=== PATIENT | female | born 1960 | race Caucasian/White ===

== ENCOUNTER 2017-06-28 10:12 | Emergency (ER) | payer BC, SELFPAY ==
[2017-06-28 11:29] VITALS: BP 138/84; PULSE 72; RESP 16; TEMP 36.6; O2SAT 98; BMI 26.6
--- NOTE | 2017-06-28 12:39 | XR_ITS ---
XR knee RT 4V Comparison: None available History: Knee pain follow-up with Dr. Woodruff Technique: Weightbearing AP, lateral and Donald views were performed as well as oblique. Findings: No significant joint effusion. No fracture. No acute findings. Only Slight sharpening at Joint margins , which may reflect early degenerative changes. However the medial and lateral compartment are fairly well maintained with only borderline narrowing on these weightbearing views Patellofemoral relationships appear satisfactory on the sunrise view with with perhaps only very slight slight lateral shift of patella. Impression: No prominent findings. No significant joint effusion. Osseous structures intact. Borderline joint space narrowing with Only mild sharpening joint margins which are suggestive minor early degenerative changes.
--- NOTE | 2017-06-28 12:39 | NVE_ITS ---
Venous Exam Indications: 729.5 Pain in limb. IMPRESSIONS 1. There is no evidence of significant Reflux. 2. No evidence of deep or superficial vein thrombosis involving the right lower extremity.. Right lower extremity venous duplex evaluation. Doppler flow study including spectral analysis, color and solis scale imaging. Location: Vascular laboratory. Patient status: Outpatient. Tables: Venous flow and imaging: + +-------+ + Location Overall Flow properties + +-------+ + Right common femoral Patent Normal phasicity; spontaneous; normal augmentation; compressible + +-------+ + Right saphenofemoral junction Patent Compressible + +-------+ + Right profunda femoral Patent Compressible + +-------+ + Right femoral Patent Normal phasicity; spontaneous; normal augmentation; compressible + +-------+ + Right greater saphenous Patent Normal phasicity; spontaneous; normal augmentation; compressible + +-------+ + Right popliteal Patent Normal phasicity; spontaneous; normal augmentation; compressible + +-------+ + Right posterior tibial Patent Compressible + +-------+ + Right peroneal Patent Compressible + +-------+ + Right gastrocnemius Patent Compressible + +-------+ + Right soleal Patent Compressible + +-------+ + (Report amended ) Electronically signed by: Nba Hernandez [id number]
--- NOTE | 2017-06-28 12:39 | HMH.EDUTC ---
[facility] – [place] Disposition Clinical Impression: Right anterior knee pain, Pain of right calf Disposition: Home, Self-Care Condition on Discharge: Good Instructions: DI for Knee Pain Additional Instructions: No fracture, dislocation or blood clot Rest Ice 15-20 minutes 3-4 times a day Fran wrap as needed Keep follow up for Wednesday Referrals: Edwin Woodruff MD [Staff Physician] - (Keep already schedule appointment for Wednesday. be sure to let him know you were here so he can look at the final results of the doppler study and xrays. Follow up immediately for new or worsening symptoms.) Time of Disposition: 14:03 Medical Decision Making Vital Signs: 06/28/17 11:29 Temperature 97.9 F Temperature Source Temporal Artery Scan Pulse Rate [Brachial] 72 Respiratory Rate 16 Blood Pressure [Right Arm] 138/84 Blood Pressure Mean [Right Arm] 102 Blood Pressure Source [Right Arm] Automatic Cuff Blood Pressure Position [Right Arm] Sitting 02 Sat by Pulse Oximetry 98 Oxygen Delivery Method Room Air - Radiology Data #1 Image(s): Knee Image Reviewed: Yes I reviewed the patient's radiology image w/the ED provider louis w/ Dr. Sams. No fracture or dislocation. Keep FU with Dr. Tellez - US Data US Images: Lower Extremity Findings Narrative: Rvwd findings with instrument and control technician who reports no findings. - Physician Consults Physician Consulted: Dr. Tellez's office, did not speak to MD Time: 12:35 Reason -: Pt condition Comment/Response: Called to discuss symptoms. Can't fit in patient today. Reports he would typically order 4 view knee weight bearing. - Himanshu Inquiry Pt receiving controlled substance: No - Reevaluation(s) Time: 13:40 Reevaluation #1: Returned from doppler. Verbal from tech was negative result. Waiting for radiologist to read xrays [facility] [place] HPI - General Stated complaint: Right leg pain Time Seen by Provider: 06/28/17 12:20 Mode of Arrival: Ambulatory Source of Information: Patient Limitations: No Limitations Description of Symptoms (Recalled from Triage Doc. by RN): PT STATES THAT SHE HAS HAD RT KNEE PAIN FOR 2 WEEKS AND HAS AN APPT WITH DR TELLEZ ON WEDNESDAY. PT NOW HAS RT CALF PAIN AND TIGHTNESS AND IS CONCERNED ABOUT HAVING A BLOOD CLOT. HEENT Symptoms (Recalled from RN notes): No Resp Symptoms (Recalled from RN notes): No Skin Symptoms (Recalled from RN notes): No MS Symptoms (Recalled from RN notes): Yes Functional Status (Recalled from RN notes): NA - History of Present Illness Provider Complaint: c/o progressing right knee pain x years that has worsened over the last several months and more so in the last few weeks. Unable to localize. Deep throughout my knee . Called and made appt w/ yoan Matos. Has appt on this coming Wednesday. Came in here today because now mild pain throughout right calf. 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 Pt here insisting on doppler of LE and knee xrays for peace of mind and so that they are all ready for Dr. Woodruff on Wednesday . Contributes pain to activity. Reports 6-8 years ago she had plantar fascitis but continued dancing and ended up falling, hurting right knee and hip at that time. Never sought treatment evenutally worked it out but it was never the same again . 2-3 year ago, stepped off a staircase accidently. Knee pain again but didn't seek treatment. Last year was running daily, 2-3 miles a day with intermittent knee pain. I just continued to fight throughout it . Hoping to get back to running but worried about the pain. 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 Has started to try driving with toes to compensate for knee pain while driving. pain fluctuates. Better today. Worse with kneeling at times. Worse with steps at times. Reports a hx of weakness and at times, giving out. - Related Data Home Medications Medicatio
--- NOTE | 2017-06-28 12:42 | ED_ITS ---
[facility] [place] Disposition Clinical Impression: Right anterior knee pain, Pain of right calf Disposition: Home, Self-Care Condition on Discharge: Good Instructions: DI for Knee Pain Additional Instructions: No fracture, dislocation or blood clot Rest Ice 15-20 minutes 3-4 times a day Fran wrap as needed Keep follow up for Wednesday Referrals: Edwin Woodruff MD [Staff Physician] - (Keep already schedule appointment for Wednesday. be sure to let him know you were here so he can look at the final results of the doppler study and xrays. Follow up immediately for new or worsening symptoms.) Time of Disposition: 14:03 Medical Decision Making Vital Signs: 06/28/17 11:29 Temperature 97.9 F Temperature Source Temporal Artery Scan Pulse Rate [Brachial] 72 Respiratory Rate 16 Blood Pressure [Right Arm] 138/84 Blood Pressure Mean [Right Arm] 102 Blood Pressure Source [Right Arm] Automatic Cuff Blood Pressure Position [Right Arm] Sitting 02 Sat by Pulse Oximetry 98 Oxygen Delivery Method Room Air - Radiology Data #1 Image(s): Knee Image Reviewed: Yes I reviewed the patient's radiology image w/the ED provider louis w/ Dr. Sams. No fracture or dislocation. Keep FU with Dr. Tellez - US Data US Images: Lower Extremity Findings Narrative: Rvwd findings with pharmaceutical laboratory technician who reports no findings. - Physician Consults Physician Consulted: Dr. Tellez's office, did not speak to MD Time: 12:35 Reason -: Pt condition Comment/Response: Called to discuss symptoms. Can't fit in patient today. Reports he would typically order 4 view knee weight bearing. - Himanshu Inquiry Pt receiving controlled substance: No - Reevaluation(s) Time: 13:40 Reevaluation #1: Returned from doppler. Verbal from tech was negative result. Waiting for radiologist to read xrays [facility] [place] HPI - General Stated complaint: Right leg pain Time Seen by Provider: 06/28/17 12:20 Mode of Arrival: Ambulatory Source of Information: Patient Limitations: No Limitations Description of Symptoms (Recalled from Triage Doc. by RN): PT STATES THAT SHE HAS HAD RT KNEE PAIN FOR 2 WEEKS AND HAS AN APPT WITH DR TELLEZ ON WEDNESDAY. PT NOW HAS RT CALF PAIN AND TIGHTNESS AND IS CONCERNED ABOUT HAVING A BLOOD CLOT. HEENT Symptoms (Recalled from RN notes): No Resp Symptoms (Recalled from RN notes): No Skin Symptoms (Recalled from RN notes): No MS Symptoms (Recalled from RN notes): Yes Functional Status (Recalled from RN notes): NA - History of Present Illness Provider Complaint: c/o progressing right knee pain x years that has worsened over the last several months and more so in the last few weeks. Unable to localize. Deep throughout my knee . Called and made appt w/ yoan Matos. Has appt on this coming Wednesday. Came in here today because now mild pain throughout right calf. 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 Pt here insisting on doppler of LE and knee xrays for peace of mind and so that they are all ready for Dr. Woodruff on Wednesday . Contributes pain to activity. Reports 6-8 years ago she had plantar fascitis but continued dancing and ended up falling, hurting right knee and hip at that time. Never sought treatment evenutally worked it out but it was never the same again . 2-3 year ago, stepped off a staircase accidently. Knee pain again but didn't seek treatment. Last year was running daily, 2-3 mile
--- NOTE | 2017-06-28 12:46 | PC.NURSE ---
NOTIFIED ECHO OF VENOUS DOPPLER AT THIS TIME.
== END 2017-06-28 14:04 | disposition home or self-care (01) ==
PROVIDERS: Emergency Provider Nurse Practitioner Family; Family Provider Family Medicine
DX: M79.661 Pain in right lower leg (principal); M25.561 Pain in right knee; Z90.49 Acquired absence of other specified parts of digestive tract; Z88.6 Allergy status to analgesic agent
CPT/HCPCS: 73564; 93971; 99202

== ENCOUNTER 2017-07-28 08:30 | Outpatient (RCR) | payer BC, SELFPAY ==
--- NOTE | 2017-07-07 12:12 | HMH.PTEV ---
PHYSICIAN CERTIFICATION: I certify the specified therapy services for Yue Anness are required, authorized, and reviewed every 30 days.
--- NOTE | 2017-07-12 14:24 | HMH.PTOPEV ---
Rehab Outpatient Evaluation Rehab OP Evaluation Start: 07/07/17 11:52 Freq: Status: Active Protocol: Document 07/07/17 11:52 OMAR (Rec: 07/07/17 12:11 OMAR [id number]) Electronically Signed By Tr Mtz, PT 07/07/17 11:52 Outpatient Therapy Subjective History Subjective History Pt reports insidious onset R knee pain beginning ~4-6 weeks ago. Pt reports starting a running routine with R knee pain following, progressively worsened effecting lower-level functional activities. Pt reports R knee pain will radiate globally aroung knee and refer pain into R calf area, with intermittent episodes of feeeling 'out of place'. Chief Complaint Pain Stiff Swelling Catches/Locks Gives out/Unstable Weakness Symptom Type Ache Sharp Dull Symptoms Relieved By Rest/Positioning Ice Elevation Symptoms Aggravated By Physical Activity Walking Prior Functional Limitations None Current Functional Limitations Driving Standing Recreation Activity Walking Stairs Bending/Stooping Symptom Description Intermittent Level of pain today (0-10) 1 Pain scale - at its best (0-10) 0 Pain scale - at its worst (0-10) 5 Hip/Knee Eval Gait Observation General Gait Pattern Observation Antalgic Gait Assistive Device Assistive Devices None / NA Palpation Tenderness right Knee Palpation Finding Tenderness Knee Palpation Overall Comment 1-2/4 MMT bilateral Hip Flexion Strength Grade 5 Normal Hip Abduction Strength Grade 4- Good- Hip Adduction Strength Grade 4- Good- Hip Extension Strength Grade 4 Good Gluteus Damien Strength Grade 4 Good Hip External Rotation Strength Grade 4- Good- Hip Internal Rotation Strength Grade 4- Good- Knee Extension Strength Grade 5 Normal Knee Flexion Strength Grade 5 Normal ROM left Knee Flexion Active Range of Motion ( 0-130 degrees)
== END 2017-07-28 08:31 | disposition home or self-care (01) ==
LOC: PT 08:30
PROVIDERS: Family Provider Family Medicine; PCP Family Medicine; Visit Provider Orthopaedic Surgery
DX: M22.41 Chondromalacia patellae, right knee (principal); M17.11 Unilateral primary osteoarthritis, right knee
CPT/HCPCS: 97010; 97014; 97016; 97033; 97110; G0283

== ENCOUNTER 2018-07-13 04:10 | Observation (INO) ==
[2018-07-13 05:07] LABS: Basophils % 0.1 % (0.1-2.0); Hematocrit 50.1 % (37.0-47.0); Hemoglobin 16.2 g/dL (12.2-16.2); Lymphocytes # 0.9 K/mm3 (0.7-4.5); Lymphocytes % 9.9 % (10-50); Mean Corpuscular HGB Conc 32.3 g/dL (31.8-35.4); Mean Corpuscular Volume 92.8 fl (81-99); Mean Platelet Volume 7.5 fl (7.4-10.4); Monocytes # 0.2 K/mm3 (0.1-1.0); Monocytes % 2.6 % (1.7-9.3); Neutrophils # 7.9 K/mm3 (1.8-7.8); Neutrophils % 87.4 % (37.0-80.0); Platelet Count 300 K/mm3 (142-424); Red Cell Distribution Width 12.3 % (11.5-17.5)
[2018-07-13 05:15] LABS: Alanine Aminotransferase 25 U/L (12-78); Albumin Level 4.4 gm/dL (3.4-5.0); Alkaline Phosphatase 71 U/L (46-116); Amylase 89 U/L (25-115); Anion Gap 18.8 mEq/L (5-15); Aspartate Amino Transferase 14 U/L (15-37); Bilirubin,Total 1.6 mg/dL (0.2-1.0); Blood Urea Nitrogen 18 mg/dL (7-18); C-Reactive Protein 0.6 mg/L (0.0-0.9); Calcium 10.2 mg/dL (8.5-10.1); Carbon Dioxide 26 mmol/L (21.0-32.0); Chloride 99 mmol/L (98-107); Globulin 4.4 gm/dl (1.3-3.2); Glucose 181 mg/dL (74-106); Lipase 64 u/L (73-393); Potassium 3.8 mmoL/L (3.5-5.1); Sodium 140 mmol/L (136-145); Total Protein,Serum 8.8 gm/dL (6.4-8.2)
[2018-07-13 05:41] LABS: Anisocytosis 1+; Lymphocytes % 13 % (10-50); Monocytes % 1 % (2-9); Neutrophils % 86 % (42-76); Total Cells Counted 100
[2018-07-13 06:06] LABS: Erythrocyte Sedimentation Rate 31 mm/hr (0-30)
--- NOTE | 2018-07-13 06:49 | Emergency Department Note ---
ED Disposition Clinical Impression: SBO (small bowel obstruction) Disposition: Admitted as Observation Condition on Discharge: Good Referrals: Edwin Mccord [Primary Care Provider] - - Critical Care Critical Care Time: No Attestation: On 07/13/18, the high probability of a clinically significant, sudden or life threatening deterioration of the following system(s) required my full and direct attention, intervention and personal management. The time I documented below is in addition to time spent performing reported procedures but includes the following listed in this critical care notation. Medical Decision Making - Medical Records Medical records reviewed: Yes: I reviewed the patient's medical records. - Himanshu Inquiry Pt receiving controlled substance: No Vital Signs: 07/13/18 04:11 07/13/18 04:34 07/13/18 05:11 Temperature 98.0 F Temperature Source Oral Pulse Rate [Right Brachial] 77 71 58 L Respiratory Rate 16 15 14 Blood Pressure [Right Arm] 123/86 123/77 95/52 L Blood Pressure Mean [Right Arm] 98 92 66 Blood Pressure Source [Right Arm] Blood Pressure Position [Right Arm] 02 Sat by Pulse Oximetry 100 99 98 Oxygen Delivery Method Nasal Cannula Oxygen Flow Rate (LPM) 2 07/13/18 06:00 07/13/18 06:45 07/13/18 07:15 Temperature 98.5 F Temperature Source Oral Pulse Rate [Right Brachial] 68 61 66 Respiratory Rate 14 16 Blood Pressure [Right Arm] 110/62 105/85 L 100/59 L Blood Pressure Mean [Right Arm] 78 91 72 Blood Pressure Source [Right Arm] Automatic Cuff Blood Pressure Position [Right Arm] Sitting 02 Sat by Pulse Oximetry 98 98 98 Oxygen Delivery Method Nasal Cannula Room Air Oxygen Flow Rate (LPM) 2 - Lab Data Lab results reviewed: Yes: I reviewed the patient's lab results. Lab Results 07/13/18 04:25: WBC 9.0, RBC 5.40, Hgb 16.2, Hct 50.1 H, MCV 92.8, MCH 30.0, MCHC 32.3, RDW 12.3, Plt Count 300, MPV 7.5, Neut % (Auto) 87.4 H, Lymph % (Auto) 9.9 L, [place] % (Auto) 2.6, Eos % (Auto) 0.0 L, Baso % (Auto) 0.1, Neut # (Auto) 7.9 H, Lymph # (Auto) 0.9, [place] # (Auto) 0.2, Eos # (Auto) 0.0, Baso # (Auto) 0.0, Total Counted 100, Neutrophils % (Manual) 86 H, Lymphocytes % (Manual) 13, Monocytes % (Manual) 1 L, Platelet Estimate Normal, Anisocytosis 1+, ESR 31 H 07/13/18 04:25: Sodium 140, Potassium 3.8, Chloride 99, Carbon Dioxide 26, Anion Gap 18.8 H, BUN 18, Creatinine 0.86, Estimated Creat Clear 78, Estimated GFR 68, Est GFR ( Amer) 82, Glucose 181 H, Calcium 10.2 H, Total Bilirubin 1.6 H, AST 14 L, ALT 25, Alkaline Phosphatase 71, Troponin I < 0.02, C-Reactive Protein 0.6, Total Protein 8.8 H, Albumin 4.4, Globulin 4.4 H, Albumin/Globulin Ratio 1.0 L, Amylase 89, Lipase 64 L 07/13/18 04:25: Lactate 1.5 Result diagrams: 07/13/18 04:25 07/13/18 04:25 Orders (Tests/Meds): ED MEDICATIONS Generic Name Dose Route Start Last Admin Trade Name Freq PRN Reason Stop Dose Admin Sodium Chloride 1,000 mls @ 999 mls/hr 07/13/18 04:30 07/13/18 04:34 Sod Chlor 0.9% 1000ml Bag IV 07/13/18 05:30 999 mls/hr .Q1H1M KAY Administration Sodium Chloride 10 ml 07/13/18 04:20 07/13/18 04:34 Saline Flush 10ml Syringe IV 08/12/18 04:19 10 ml NEEDED PRN Administration Maintain IV Site Discontinued Medications Generic Name Dose Route Start Last Admin Trade Name Freq PRN Reason Stop Dose Admin Famotidine 20 mg 07/13/18 04:22 07/13/18 04:34 Pepcid 20mg/2ml Vial IV 07/13/18 04:23 20 mg ONCE ONE Administration Ketorolac Tromethamine 30 mg 07/13/18 04:22 07/13/18 04:34 Toradol 30mg/Ml Vial IV 07/13/18 04:23 30 mg ONCE ONE Administration Metoclopramide HCl 10 mg 07/13/18 04:22 07/13/18 04:34 Reglan 10mg/2ml Vial IVP 07/13/18 04:23 10 mg ONCE ONE Administration Morphine Sulfate 4 mg 07/13/18 04:22 07/13/18 04:34 Morphine 4mg/Ml Syringe IV 07/13/18 04:23 4 mg ONCE ONE Administration Ondansetron HCl 4 mg 07/13/18 04:22 07/13/18 04:34 Zofran 4mg/2ml Vial IV 07/13/18 04:23 4 mg ONCE ONE Administration ORDERS Category Date Time Status Urinalysis and Microscopic Stat Lab 07/13/18 04:21 Ordered - CT Data CT Scan: Abdomen, Pelvis Time Received: 06:[address] Reviewed: Yes: I have viewed the radiologist's interpretation Preliminary Findings: Abnormal (sbo) - Physician Consults Physician Consulted: yuni Reason -: Admission Nausea/Vomiting/Diarrhea HPI - General Chief complaint: Nausea/Vomiting/Diarrhea Stated complaint: Severe abdominal pain, vomiting Time Seen by Provider: 07/13/18 04:20 Mode of Arrival: Wheelchair Source of Information: Patient, Spouse, Medical Record Limitations: No Limitations Description of Symptoms (Recalled from ER Triage Doc. by RN): Pt here with severe abdominal cramping and vomiting. Pt reports this has been going on since 0600 yesterday. Denies diarrhea or fevers. - History of Present Illness HPI Narrative: abd pain with vomiting over the last 24 hrs MD complaint: nausea, vomiting, abdominal pain Onset (ago): day(s) Associated Abdominal Pain: Yes Location of pain: periumbilical Severity: moderate Associated symptoms: denies other symptoms - Related Data Home Medications Medication Instructions Recorded Confirmed multivitamin,us-[id number]-[id number] 1 tab PO DAILY 07/02/17 07/13/18 tablet Allergies Allergy/AdvReac Type Severity Reaction Status Date / Time codeine [CODEINE] Allergy Unknown NA-NAUSEA/V Verified 07/02/17 11:13 OM[facility]ING [facility] History - Hepatitis A Screen Drug use history?: No High risk sexual behaviors?: No History of sexually transmitted infection?: No Currently employed?: No Childcare worker?: No Do you have indoor plumbing?: Yes Do you have electricity?: Yes Attestation statement:: This patient has been screened for Hepatitis A risk factors. I have reviewed the patient's past medical history: Yes 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: Reports:: Kidney Stones Denies:: Cancer, Diabetes Mellitus Type 1, Diabetes Mellitus Type 2, MRSA Laterality Cases: Bilateral: Other Other Surgeries: Yes: Other Amputation: No Fractures: No - Social History Smoking Status: Never smoker Alcohol Intake: never Occupational Status: employed Housing: house - Psychiatric History Expresses thoughts of harming self/others: None Suicide Plan Description: No Plan Family Hx:: Diabetes, Hypertension, Stroke ROS Obtained: Yes All systems reviewed & no additional complaints - Constitutional Constitutional: Denies fever(s) - Eyes Eyes: Denies change in vision - ENT Ears, Nose, Mouth, and Throat: Denies sore throat - Cardiovascular Cardiovascular: Denies chest pain at rest - Respiratory Respiratory: No cough - Gastrointestinal Gastrointestingal: Reports: as per HPI, abdominal pain, nausea, vomiting. Denies: diarrhea - Genitourinary Female Genitourinary: Denies flank pain - Musculoskeletal Musculoskeletal: Denies joint pain, Denies joint swelling - Integumentary/Breasts Skin/Breast: Denies rash - Neurologic Neurologic: Denies seizure-like activity Physical Exam - General General appearance: alert - Head Head exam: normocephalic - Eye Eye exam: Present: PERRL, EOMI. Absent: scleral icterus - ENT ENT exam: Present: mucous membranes dry - Neck Neck exam: Present: trachea midline - Respiratory Respiratory exam: Absent: respiratory distress - Cardiovascular Cardiovascular exam: Present: regular rate, systolic murmur - Abdominal Exam Abdominal exam: Present: soft, tenderness Abdominal tenderness: Present: epigastrium, moderate - Extremities Exam Extremities exam: Present: full ROM - Neurological Exam Neurological exam: Present: alert, CN II-XII intact - Psychiatric Psychiatric exam: Present: normal affect - Skin Skin exam: Absent: rash
--- NOTE | 2018-07-13 08:20 | History & Physical Report ---
HPI HPI: This is a 58-year-old female who presented to the emergency department with increasing abdominal pain and nausea/vomiting. She states that her symptoms began at approximately 6 AM yesterday morning at which time she developed "crampy pain". Subsequently, she developed some nausea/vomiting. No abdominal distention. No hematemesis. No diarrhea. No fevers. [facility] History 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: Reports:: Kidney Stones Denies:: Cancer, Diabetes Mellitus Type 1, Diabetes Mellitus Type 2, MRSA Laterality Cases: Bilateral: Other Other Surgeries: Yes: Other Amputation: No Fractures: No - *Social History Smoking Status: Never smoker Alcohol Intake: never Occupational Status: employed Housing: house Travel in the last 8 weeks: None - Psychiatric History Expresses thoughts of harming self/others: None Suicide Plan Description: No Plan *Family Hx:: Diabetes, Hypertension, Stroke Review of Systems - Constitutional Denies body ache(s) - Eyes Denies change in vision - ENT Denies change in voice - *Cardiovascular Denies chest pain - *Respiratory Denies cough - *Gastrointestinal Reports abdominal pain, Reports nausea, Reports vomiting, Denies difficulty swallowing, Denies vomiting blood, Denies black, tarry stools - *Genitourinary Denies abnormal vaginal bleeding - *Musculoskeletal Denies abnormal walking - Integumentary/Breasts Denies bleeding lesions - *Neurologic Denies abnormal movements, Denies seizure-like activity - Psychiatric Denies anxiety - Endocrine Denies cold intolerance - Hematologic/Lymphatic Denies easy bleeding - Allergic/Immunologic Denies GI upset with certain foods Meds Home Medications Medication Instructions Recorded Confirmed Type multivitamin,[id number] 1 tab PO DAILY 07/02/17 07/13/18 History tablet Allergies Allergy/AdvReac Type Severity Reaction Status Date / Time codeine [CODEINE] Allergy Unknown NA-NAUSEA/V Verified 07/02/17 11:13 OMITING Exam Vital signs and Labs for Last 24 Hours: Temp Pulse Resp BP Pulse Ox 98.5 F 66 16 100/59 L 98 07/13/18 06:00 07/13/18 07:15 07/13/18 07:15 07/13/18 07:15 07/13/18 07:15 Laboratory Results - last 24 hr 07/13/18 04:25: WBC 9.0, RBC 5.40, Hgb 16.2, Hct 50.1 H, MCV 92.8, MCH 30.0, MCHC 32.3, RDW 12.3, Plt Count 300, MPV 7.5, Neut % (Auto) 87.4 H, Lymph % (Auto) 9.9 L, [place] % (Auto) 2.6, Eos % (Auto) 0.0 L, Baso % (Auto) 0.1, Neut # (Auto) 7.9 H, Lymph # (Auto) 0.9, [place] # (Auto) 0.2, Eos # (Auto) 0.0, Baso # (Auto) 0.0, Total Counted 100, Neutrophils % (Manual) 86 H, Lymphocytes % (Manual) 13, Monocytes % (Manual) 1 L, Platelet Estimate Normal, Anisocytosis 1+, ESR 31 H 07/13/18 04:25: Sodium 140, Potassium 3.8, Chloride 99, Carbon Dioxide 26, Anion Gap 18.8 H, BUN 18, Creatinine 0.86, Estimated Creat Clear 78, Estimated GFR 68, Est GFR ( Amer) 82, Glucose 181 H, Calcium 10.2 H, Total Bilirubin 1.6 H, AST 14 L, ALT 25, Alkaline Phosphatase 71, Troponin I < 0.02, C-Reactive Protein 0.6, Total Protein 8.8 H, Albumin 4.4, Globulin 4.4 H, Albumin/Globulin Ratio 1.0 L, Amylase 89, Lipase 64 L 07/13/18 04:25: Lactate 1.5 I & O for Last 24 hours: Intake & Output 07/10/18 07/11/18 07/12/18 07/13/18 11:59 11:59 11:59 11:59 Weight 155 lb - Constitutional no acute distress - *Routine HEENT Exam Head: Present: normocephalic, atraumatic Eye: Present: EOMI ENT: Present: oropharynx clear - *Routine Neck Exam Present: full ROM - Routine Chest/Breast/Axilla Exam Chest wall: Absent: tenderness - *Routine Respiratory Exam Absent: respiratory distress - *Routine Cardiovascular Exam Present: RRR - *Routine Abdominal Exam Present: soft. Absent: tenderness, distended, rebound, guarding Comments: currently non-tender - Routine Back/Spine/Pelvis Exam Back/Spine: Present: full ROM - *Routine Skin Exam Present: intact - *Routine Neurological Exam Present: alert - Routine Psychiatric Exam Present: normal affect Results - Results Lab Results Last 24 Hours:: Laboratory Results - last 24 hr 07/13/18 04:25: WBC 9.0, RBC 5.40, Hgb 16.2, Hct 50.1 H, MCV 92.8, MCH 30.0, MCHC 32.3, RDW 12.3, Plt Count 300, MPV 7.5, Neut % (Auto) 87.4 H, Lymph % (Auto) 9.9 L, [place] % (Auto) 2.6, Eos % (Auto) 0.0 L, Baso % (Auto) 0.1, Neut # (Auto) 7.9 H, Lymph # (Auto) 0.9, [place] # (Auto) 0.2, Eos # (Auto) 0.0, Baso # (Auto) 0.0, Total Counted 100, Neutrophils % (Manual) 86 H, Lymphocytes % (Manual) 13, Monocytes % (Manual) 1 L, Platelet Estimate Normal, Anisocytosis 1+, ESR 31 H 07/13/18 04:25: Sodium 140, Potassium 3.8, Chloride 99, Carbon Dioxide 26, Anion Gap 18.8 H, BUN 18, Creatinine 0.86, Estimated Creat Clear 78, Estimated GFR 68, Est GFR ( Amer) 82, Glucose 181 H, Calcium 10.2 H, Total Bilirubin 1.6 H, AST 14 L, ALT 25, Alkaline Phosphatase 71, Troponin I < 0.02, C-Reactive Protein 0.6, Total Protein 8.8 H, Albumin 4.4, Globulin 4.4 H, Albumin/Globulin Ratio 1.0 L, Amylase 89, Lipase 64 L 07/13/18 04:25: Lactate 1.5 CT scan - abdomen: report reviewed, image reviewed CT scan - pelvis: report reviewed, image reviewed Assessment and Plan (1) SBO (small bowel obstruction) Current visit: Yes Status: Acute Category: Medical Code(s): K56.609 - Unspecified intestinal obstruction, unspecified as to partial versus complete obstruction Although the patient has clinically improved, she does have radiographic evidence of at least a partial obstruction. A small bowel follow-through has been ordered. She will be maintained in n.p.o. status with serial abdominal exams. Serial flat and upright abdominal films have also been ordered.
--- NOTE | 2018-07-13 14:08 | Pharmacy Consult Notes ---
[facility] Pharmacy VTE Monitoring - Patient Demographics Admission date: 07/13/18 Report Date: 07/13/18 Time: 14:07 Allergies/Adverse Reactions: Patient Allergies codeine [CODEINE] Allergy (Unknown, Verified 07/02/17 11:13) NA-NAUSEA/VOMITING Height: 1.65 m Weight: 72.121 kg Patient Problems: Current Active Problems SBO (small bowel obstruction) (Acute) - VTE Risk Labs: VTE Related Lab Results Hgb 16.2 g/dL (12.2-16.2) 07/13/18 04:25 Hct 50.1 % (37.0-47.0) H 07/13/18 04:25 Plt Count 300 K/mm3 (142-424) 07/13/18 04:25 BUN 18 mg/dL (7-18) 07/13/18 04:25 Creatinine 0.86 mg/dL (0.55-1.02) 07/13/18 04:25 Estimated Creat Clear 78 mL/min (50-200) 07/13/18 04:25 Was VTE Risk Assessment Performed: No VTE Score: 2 VTE Risk Level: Very Low Risk Clinical Trial Participant: No - Prophylaxis VTE Prophylaxis Ordered?: Yes Types of VTE Prophylaxis: TEDS Knee High
[2018-07-14 06:37] LABS: Anion Gap 8.7 mEq/L (5-15); Potassium 3.7 mmoL/L (3.5-5.1)
[2018-07-14 06:41] LABS: Basophils % 0.3 % (0.1-2.0); Eosinophils # 0.2 K/mm3 (0.0-0.4); Eosinophils % 3.2 % (0.1-12.0); Hematocrit 34.6 % (37.0-47.0); Hemoglobin 11.2 g/dL (12.2-16.2); Lymphocytes # 1.8 K/mm3 (0.7-4.5); Lymphocytes % 37.9 % (10-50); Mean Corpuscular HGB Conc 32.3 g/dL (31.8-35.4); Mean Corpuscular Hemoglobin 30.4 pg (27.0-31.2); Mean Corpuscular Volume 94.2 fl (81-99); Mean Platelet Volume 7.2 fl (7.4-10.4); Monocytes # 0.3 K/mm3 (0.1-1.0); Monocytes % 6.3 % (1.7-9.3); Neutrophils # 2.5 K/mm3 (1.8-7.8); Neutrophils % 52.4 % (37.0-80.0); Platelet Count 168 K/mm3 (142-424); Red Blood Count 3.68 M/mm3 (4.20-5.40); Red Cell Distribution Width 12.6 % (11.5-17.5); White Blood Count 4.7 K/mm3 (4.8-10.8)
[2018-07-14 06:47] LABS: Calcium 7.8 mg/dL (8.5-10.1)
--- NOTE | 2018-07-14 06:47 | Progress Note ---
Subjective Patient reports: feels better, flatus, no bowel movement Exam Vital signs and Labs for Last 24 Hours: Temp Pulse Resp BP Pulse Ox 98.2 F 65 14 98/55 L 97 07/14/18 04:01 07/14/18 04:01 07/14/18 04:01 07/14/18 04:01 07/14/18 04:01 Laboratory Results - last 24 hr 07/14/18 05:52: Sodium 144, Potassium 3.7, Chloride 110 H, Carbon Dioxide 29, Anion Gap 8.7, BUN 10 D, Creatinine 0.77, Estimated Creat Clear 90, Estimated GFR 77, Est GFR ( Amer) 93, Glucose 98 I & O for Last 24 hours: Intake & Output 07/11/18 07/12/18 07/13/18 07/14/18 11:59 11:59 11:59 11:59 Intake Total 720 / 720 Balance 720 / 720 Weight 159 lb 160 lb - Constitutional no acute distress - *Routine Respiratory Exam Absent: respiratory distress - *Routine Cardiovascular Exam Present: RRR - *Routine Abdominal Exam Present: soft. Absent: tenderness Progress Note: A&P (1) SBO (small bowel obstruction) Status: Acute Assessment and plan: SBFT yesterday reveals no obstruction. + flatus. full liquids this AM f/u AM films f/u AM labs ? d/c home later today (pending above) Current Visit: Yes
--- NOTE | 2018-07-14 12:10 | Discharge Summary ---
General - General Admission date:: 07/13/18 Discharge date: 07/14/18 HPI HPI: This is a 58-year-old female who presented to the emergency department with increasing abdominal pain and nausea/vomiting. She states that her symptoms began at approximately 6 AM yesterday morning at which time she developed "crampy pain". Subsequently, she developed some nausea/vomiting. No abdominal distention. No hematemesis. No diarrhea. No fevers. Hospital Course Hospital Course: The patient was admitted for observation to the surgical service. She had significant improvement with regard to pain. A small bowel follow-through revealed no sign of obstruction. Follow-up abdominal films revealed a fairly normal bowel gas pattern. Her bowel function did return as she developed significant flatus followed by a "fairly normal" bowel movement. She is deemed appropriate for discharge on the afternoon of July 14, 2018. At the time of discharge she was afebrile with stable and normal vital signs. She was ambulating without difficulty and tolerating a full liquid diet. Objective Vital signs: Temp Pulse Resp BP Pulse Ox 97.5 F L 70 18 97/61 L 96 07/14/18 08:00 07/14/18 08:00 07/14/18 08:00 07/14/18 08:00 07/14/18 08:00 no acute distress - *Routine HEENT Exam Head: Present: normocephalic Eye: Present: EOMI - *Routine Neck Exam Present: full ROM - Routine Chest/Breast/Axilla Exam Chest wall: Absent: tenderness - *Routine Respiratory Exam Absent: respiratory distress - *Routine Cardiovascular Exam Present: RRR - *Routine Abdominal Exam Present: soft. Absent: distended - *Routine Extremities Exam Present: full ROM. Absent: cyanosis, clubbing, edema - Routine Back/Spine/Pelvis Exam Back/Spine: Present: full ROM - *Routine Skin Exam Present: intact - *Routine Neurological Exam Present: alert, oriented X3 - Routine Psychiatric Exam Present: normal affect Results Labs on day of discharge: Labs from last 24 hours 07/14/18 07/14/18 05:52 05:52 WBC 4.7 L D RBC 3.68 L D Hgb 11.2 L Hct 34.6 L MCV 94.2 MCH 30.4 MCHC 32.3 RDW 12.6 Plt Count 168 D MPV 7.2 L Neut % (Auto) 52.4 Lymph % (Auto) 37.9 [place] % (Auto) 6.3 Eos % (Auto) 3.2 Baso % (Auto) 0.3 Neut # (Auto) 2.5 Lymph # (Auto) 1.8 [place] # (Auto) 0.3 Eos # (Auto) 0.2 Baso # (Auto) 0.0 Sodium 144 Potassium 3.7 Chloride 110 H Carbon Dioxide 29 Anion Gap 8.7 BUN 10 D Creatinine 0.77 Estimated Creat Clear 90 Estimated GFR 77 Est GFR ( Amer) 93 Glucose 98 Calcium 7.8 L D DS: Diagnosis - Discharge Diagnosis (1) SBO (small bowel obstruction) Status: Acute Problem details: Transient partial obstruction of undetermined etiology (quickly resolved) Discharge Plan - Patient Discharge Instructions ACTIVITY: Continue current activity DIET: advance to your usual diet Additional Instructions: Ongoing follow-up with regard to partial transient small bowel obstruction as outpatient. Patient Instructions: Small Bowel Obstruction, DI for Small Bowel Obstruction - Follow up Plan Follow up with: Kelton Box MD [Staff Physician] - 1 week Disposition: Home, Self-Senior Living Medications: Home Medications Medication Instructions Recorded Confirmed Type multivitamin,[id number] 1 tab PO DAILY 07/02/17 07/13/18 History tablet Prescriptions/Medication Reconciliation: Continue multivitamin,[id number] tablet 1 tab PO DAILY
== END 2018-07-14 13:05 | disposition home or self-care (01) ==
LOC: ER 04:10 → ICU 04:10
PROVIDERS: ADMIT Surgery; ATTEND Surgery
DX: K56.600 Partial intestinal obstruction, unspecified as to cause
CPT/HCPCS: 36415; 74021; 74022; 74177; 74250; 80048; 80053; 82150; 83605; 83690; 84484; 85007; 85025; 85651; 86140; 96365; 96375; 99284; G0378; J2405

== ENCOUNTER → 2018-07-22 09:51 | Outpatient (CLI) | payer OTHER, SELFPAY ==
--- NOTE | 2018-07-22 10:00 | CT_ITS ---
CT abdomen pelvis w con CLINICAL INDICATION: Follow-up small bowel obstruction ITS.REASON: partial SBO ORDERING PHYSICIAN: Kelton Box MD PATIENT AGE: 58 years COMPARISON: 07/13/2018 TECHNIQUE: Axial images obtained with sagittal and coronal reformats. All CT scans at the facility use one or more dose reduction, viz: automated exposure control, ma/kV adjustment per patient size (including targeted exams where dose is matched to indication, i.e. head), or iterative reconstruction technique. PROCEDURE: Oral Contrast: Redicat IV Contrast: 75 mL's Optiray 350. FINDINGS: Lung bases are clear. The liver, spleen, adrenal glands, pancreas, and kidneys have an unremarkable appearance. There is a small left renal cyst at 9 mm. There are postcholecystectomy changes. There is mild amount of retained colonic feces. There is a small umbilical hernia once again noted which contains a loop of small bowel. There are some minimal thickening of the small bowel within the mid abdominal region which is inferior to the level of the umbilical hernia. There is some mild prominence of the small bowel loops in this region. This transitions to normal caliber in the right lower quadrant anteriorly. This is inferior to the level of the umbilicus and corresponds to the suspected area of transition on small bowel follow-through of 07/13/2018. No masses are evident. No adenopathy. No acute bony findings. There is some residual contrast within colonic diverticula. IMPRESSION: 1. There is mild thickening of the small bowel loops in the lower abdominal region with minimal distention of the small bowel in this area was suspected transition point in the right lower quadrant suggesting very mild partial obstruction and corresponds to the small bowel follow-through.. 2. Small focal hernia containing a loop of small bowel but does not appear to be the cause of the small bowel obstruction
== END ==
PROVIDERS: PCP Family Medicine; Visit Provider Surgery
DX: K56.609 Unspecified intestinal obstruction, unspecified as to partial versus complete obstruction (principal)
CPT/HCPCS: 74177; Q9967

== ENCOUNTER 2020-11-13 13:42 | Emergency (ER) | payer OTHER, SELFPAY ==
[2020-11-13] VITALS (7 sets, daily range): BP systolic 102–146; BP diastolic 59–95; PULSE 64–89; RESP 13–20; TEMP 36.7; O2SAT 96–98; BMI 27.4
--- NOTE | 2020-11-13 13:50 | ECG_ITS ---
APPROVED REPORT Exam: Resting ECG HR:72 bpm ECG Measurements Heart Rate 72 AXES NM 120 P 77 QRSd 90 QRS 55 QT 412 T 38 QTc 451 Conclusion Normal sinus rhythm Nonspecific T wave abnormality Abnormal ECG Electronically signed by : Collin Reynoso, 11/16/2020 11:05:40
--- NOTE | 2020-11-13 13:54 | XR_ITS ---
PROCEDURE: XR CHEST 2V CLINICAL HISTORY: dizziness COMPARISON: CR CXR CHEST(2 VIEWS-NOT PORTABLE) from 05/31/2016 FINDINGS: The cardiomediastinal silhouette and pulmonary vascularity are within normal limits. The lungs are clear without infiltrates, suspicious nodules, or pleural effusions. Degenerative changes thoracic spine. IMPRESSION: No change with no acute finding Dictated by: Nba Hernandez MD 11/13/2020 14:22 Nba Hernandez MD in [place] 11/13/2020 14:22
--- NOTE | 2020-11-13 14:06 | [facility].EDGENADL ---
ED Disposition Clinical Impression: Jaw pain Thoracic back pain Qualifiers: Chronicity: acute Back pain laterality: right Qualified Code(s): M54.6 - Pain in thoracic spine Disposition: Home, Self-Care Condition on Discharge: Good Additional Instructions: Call Dr. Pinzon's office to make follow-up appointment. Additional instructions for CHEST PAIN: See your physician as soon as possible for further evaluation. Return immediately if worsening jaw or back pain, any chest pain, vomiting, shortness of breath, fever, coughing of blood. Referrals: Hilda Olmstead [Primary Care Provider] - - Critical Care Critical Care Time: No Attestation: On 11/13/20, the high probability of a clinically significant, sudden or life threatening deterioration of the following system(s) required my full and direct attention, intervention and personal management. The time I documented below is in addition to time spent performing reported procedures but includes the following listed in this critical care notation. Medical Decision Making - Himanshu Inquiry Pt receiving controlled substance: No Vital Signs: 11/13/20 13:43 11/13/20 14:15 11/13/20 14:36 Temperature 98.0 F Temperature Source Oral Pulse Rate 78 76 Pulse Rate [Left Radial] 89 Respiratory Rate 13 18 18 Blood Pressure 104/60 L 102/59 L Blood Pressure [Right Arm] 132/87 Blood Pressure Mean 66 Blood Pressure Mean [Right Arm] 102 Blood Pressure Source [Right Arm] Automatic Cuff Blood Pressure Position [Right Arm] Sitting 02 Sat by Pulse Oximetry 97 98 98 Oxygen Delivery Method Room Air 11/13/20 15:00 Temperature Temperature Source Pulse Rate 64 Pulse Rate [Left Radial] Respiratory Rate 18 Blood Pressure 106/70 L Blood Pressure [Right Arm] Blood Pressure Mean 82 Blood Pressure Mean [Right Arm] Blood Pressure Source [Right Arm] Blood Pressure Position [Right Arm] 02 Sat by Pulse Oximetry 96 Oxygen Delivery Method - Lab Data Lab Results 11/13/20 14:00: WBC 5.5, RBC 4.61, Hgb 14.2, Hct 41.9, MCV 91.0, MCH 30.9, MCHC 33.9, RDW 12.5, Plt Count 229, MPV 7.7, Neut % (Auto) 57.7, Lymph % (Auto) 34.7, [place] % (Auto) 4.4, Eos % (Auto) 2.5, Baso % (Auto) 0.7, Neut # (Auto) 3.2, Lymph # (Auto) 1.9, [place] # (Auto) 0.2, Eos # (Auto) 0.1, Baso # (Auto) 0.0 11/13/20 14:00: Sodium 140, Potassium 3.8, Chloride 106, Carbon Dioxide 29, Anion Gap 8.8, BUN 15, Creatinine 0.70, Estimated Creat Clear 70, Estimated GFR 85, Est GFR ( Amer) 103, Glucose 128 H, Calcium 9.0, Troponin I < 0.01 11/13/20 17:03: Troponin I < 0.01 Result diagrams: 11/13/20 14:00 11/13/20 14:00 Orders (Tests/Meds): ORDERS Category Date Time Status Troponin I Q3H Lab 11/13/20 20:00 Ordered - Radiology Data #1 Image(s): Chest Image Reviewed: Yes I have reviewed radiologist's interpretation PROCEDURE: XR CHEST 2V CLINICAL HISTORY: dizziness COMPARISON: CR CXR CHEST(2 VIEWS-NOT PORTABLE) from 05/31/2016 FINDINGS: The cardiomediastinal silhouette and pulmonary vascularity are within normal limits. The lungs are clear without infiltrates, suspicious nodules, or pleural effusions. Degenerative changes thoracic spine. IMPRESSION: No change with no acute finding Dictated by: Nba Hernandez MD 11/13/2020 14:22 Nba Hernandez MD in [place] 11/13/2020 14:22 - ECG Data Tracing #1 EKG interpreted by Germán Mock MD: Rhythm: sinus Rate: 72 Cross Anchor: normal Ectopy: none Conduction: normal ST Segment Changes: none T Wave Changes: none Q Waves: none No evidence of acute ischemia or injury Baseline artifact present, but I consider the EKG adequate for accurate interpretation. No prior EKGs available for comparison. - Physician Consults Physician Consulted: LANDRY Diaz for Dr. Pinzon Time: 15:00 Reason -: Cardiology Eval/Care Comment/Response: Follow-up in their office tomorrow at 10 AM - Reevaluation(s) Time: 16:
[2020-11-13 14:11] LABS: Basophils % 0.7 % (0.1-2.0); Eosinophils # 0.1 K/mm3 (0.0-0.4); Eosinophils % 2.5 % (0.1-12.0); Hematocrit 41.9 % (37.0-47.0); Hemoglobin 14.2 g/dL (12.2-16.2); Lymphocytes # 1.9 K/mm3 (0.7-4.5); Lymphocytes % 34.7 % (10-50); Mean Corpuscular HGB Conc 33.9 g/dL (31.8-35.4); Mean Corpuscular Hemoglobin 30.9 pg (27.0-31.2); Mean Platelet Volume 7.7 fl (7.4-10.4); Monocytes # 0.2 K/mm3 (0.1-1.0); Monocytes % 4.4 % (1.7-9.3); Neutrophils # 3.2 K/mm3 (1.8-7.8); Neutrophils % 57.7 % (37.0-80.0); Platelet Count 229 K/mm3 (142-424); Red Blood Count 4.61 M/mm3 (4.20-5.40); Red Cell Distribution Width 12.5 % (11.5-17.5); White Blood Count 5.5 K/mm3 (4.8-10.8)
[2020-11-13 14:18] LABS: Anion Gap 8.8 mEq/L (5-15); Blood Urea Nitrogen 15 mg/dl (7-17); Carbon Dioxide 29 mmol/L (22.0-30.0); Chloride 106 mmol/L (98-107); Creatinine Clearance Estimated 70 mL/min (50-200); Estimated Glomerular Filt Rate 85 ml/min (>60); GFR (African American) 103 ML/MIN (>60); Glucose 128 mg/dl (74-100); Potassium 3.8 mmoL/L (3.5-5.1); Sodium 140 mmol/L (136-145)
[2020-11-13 14:32] LABS: Troponin I < 0.01 ng/ml (0.00-0.034)
--- NOTE | 2020-11-13 15:12 | PC.NURSE ---
Dr Mock spoke with lee Lucas with cardiology
[2020-11-13 17:40] LABS: Troponin I < 0.01 ng/ml (0.00-0.034)
== END 2020-11-13 18:01 | disposition home or self-care (01) ==
PROVIDERS: Emergency Provider Emergency Medicine; PCP Nurse Practitioner Adult Health
DX: R68.84 Jaw pain (principal); M54.6 Pain in thoracic spine; R42 Dizziness and giddiness; Z82.49 Family history of ischemic heart disease and other diseases of the circulatory system; Z87.442 Personal history of urinary calculi; Z88.5 Allergy status to narcotic agent
CPT/HCPCS: 36415; 71046; 80048; 84484; 85025; 93005; 99282

== ENCOUNTER 2021-02-08 14:57 | Emergency (ER) | payer BC, SELFPAY ==
[2021-02-08 15:00] VITALS: BP 149/90; PULSE 86; RESP 18; TEMP 36.6; O2SAT 98; BMI 26.2
--- NOTE | 2021-02-08 15:14 | PC.NURSE ---
DR. LEA NOTIFIED OF LEFT ARM NUMBNESS x1 HOUR.
--- NOTE | 2021-02-08 15:19 | [facility].EDGENADL ---
ED Disposition Clinical Impression: Paresthesia of left arm Disposition: Home, Self-Care Condition on Discharge: Good Referrals: Provider,Referral, [Primary Care Provider] - - Critical Care Critical Care Time: No Attestation: On 02/08/21, the high probability of a clinically significant, sudden or life threatening deterioration of the following system(s) required my full and direct attention, intervention and personal management. The time I documented below is in addition to time spent performing reported procedures but includes the following listed in this critical care notation. Medical Decision Making - Medical Records Medical records reviewed: Yes: I reviewed the patient's medical records. MR V[place]: Seen by me in this emergency department 11/13/2020 for back pain, jaw pain, lightheadedness. Work-up negative. Referred to Dr. Pinzon for follow-up, states that she never did follow-up. - Himanshu Inquiry Pt receiving controlled substance: No Vital Signs: 02/08/21 15:00 02/08/21 15:30 02/08/21 16:57 Temperature 97.9 F Temperature Source Oral Pulse Rate 72 59 L Pulse Rate [Right] 86 Respiratory Rate 18 20 16 Blood Pressure 126/82 113/64 Blood Pressure [Right Arm] 149/90 H Blood Pressure Mean [Right Arm] 109 02 Sat by Pulse Oximetry 98 96 99 Oxygen Delivery Method Room Air Room Air - Lab Data Lab Results 02/08/21 15:39: WBC 6.5, RBC 4.86, Hgb 15.1, Hct 46.1, MCV 94.9, MCH 31.0, MCHC 32.7, RDW 12.8, Plt Count 256, MPV 8.2, Neut % (Auto) 57.7, Lymph % (Auto) 32.6, [place] % (Auto) 6.0, Eos % (Auto) 2.4, Baso % (Auto) 1.2, Neut # (Auto) 3.8, Lymph # (Auto) 2.1, [place] # (Auto) 0.4, Eos # (Auto) 0.2, Baso # (Auto) 0.1 02/08/21 15:39: Sodium 144, Potassium 4.6, Chloride 106, Carbon Dioxide 29, Anion Gap 13.6, BUN 22 H, Creatinine 0.70, Estimated Creat Clear 67, Estimated GFR 85, Est GFR ( Amer) 103, Glucose 111 H, Calcium 9.5, Total Bilirubin 0.7, AST 34, ALT 20, Alkaline Phosphatase 57, Troponin I < 0.01, Total Protein 8.4 H, Albumin 4.5, Globulin 3.9 H, Albumin/Globulin Ratio 1.2 Result diagrams: 02/08/21 15:39 02/08/21 15:39 Orders (Tests/Meds): ED MEDICATIONS Discontinued Medications Generic Name Dose Route Start Last Admin Trade Name Freq PRN Reason Stop Dose Admin Iopamidol 100 ml 02/08/21 16:32 02/08/21 16:33 Iopamidol-370 (76%);100ml Bottle IV 02/08/21 16:33 100 ml ONCE ONE Administration Sodium Chloride 50 ml 02/08/21 16:32 02/08/21 16:34 0.9 % Sodium Chloride 50 Ml Vial IV 02/08/21 16:33 50 ml ONCE ONE Administration Sodium Chloride 10 ml 02/08/21 16:32 02/08/21 16:33 Sodium Chloride 0.9% 10ml Syr (Rad Only) IV 02/08/21 16:33 10 ml ONCE ONE Administration ORDERS Category Date Time Status Troponin I Q3H Lab 02/08/21 18:45 Ordered Troponin I Q3H Lab 02/08/21 21:45 Ordered - CT Data CT Scan: Head, Other (CTA head neck) Time Received: 17:[address] Reviewed: Yes: I have viewed the radiologist's interpretation Findings Narrative: PROCEDURE INFORMATION: Exam: CT Angiography Neck With Contrast Exam date and time: 02/08/2021 3:45 PM Age: 60 years old Clinical indication: Other: Numbness in left arm; Additional info: Numbness left arm TECHNIQUE: Imaging protocol: Computed tomography angiography of the neck with contrast. 3D rendering (Not supervised by radiologist): MIP and/or 3D reconstructed images were created by the technologist. Radiation optimization: All CT scans at this facility use at least one of these dose optimization techniques: automated exposure control; mA and/or kV adjustment per patient size (includes targeted exams where dose is matched to clinical indication); or iterative reconstruction. Contrast material: ISOVUE 370; Contrast volume: 100 ml; Contrast route: INTRAVENOUS (IV); COMPARISON: CT HEAD/BRAIN WO CON 02/08/2021 3:46 PM FINDINGS: Right common carotid artery:
[2021-02-08 15:30] VITALS: BP 126/82; PULSE 72; RESP 20; O2SAT 96
--- NOTE | 2021-02-08 15:35 | CT_ITS ---
PROCEDURE INFORMATION: Exam: CT Head Without Contrast Exam date and time: 02/08/2021 3:35 PM Age: 60 years old Clinical indication: Other: Numbness in left arm; Additional info: Numb feeling left forearm TECHNIQUE: Imaging protocol: Computed tomography of the head without contrast. Radiation optimization: All CT scans at this facility use at least one of these dose optimization techniques: automated exposure control; mA and/or kV adjustment per patient size (includes targeted exams where dose is matched to clinical indication); or iterative reconstruction. COMPARISON: No relevant prior studies available. FINDINGS: Brain: Normal. No hemorrhage. Unremarkable white matter. No mass effect. 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 Ventricular system is otherwise unremarkable. Paranasal sinuses: Visualized sinuses are unremarkable. No fluid levels. Mastoid air cells: Visualized mastoid air cells are well aerated. Bones/joints: Unremarkable. No acute fracture. Soft tissues: Unremarkable. IMPRESSION: Negative for acute intracranial pathology.
--- NOTE | 2021-02-08 15:42 | ECG_ITS ---
APPROVED REPORT Exam: Resting ECG HR:59 bpm ECG Measurements Heart Rate 59 AXES AL 140 P 60 QRSd 86 QRS 45 QT 432 T 49 QTc 427 Conclusion Sinus bradycardia Nonspecific ST abnormality Abnormal ECG Electronically signed by : Collin Reynoso MD 02/10/2021 20:42:37
--- NOTE | 2021-02-08 15:45 | CT_ITS ---
PROCEDURE INFORMATION: Exam: CT Angiography Neck With Contrast Exam date and time: 02/08/2021 3:45 PM Age: 60 years old Clinical indication: Other: Numbness in left arm; Additional info: Numbness left arm TECHNIQUE: Imaging protocol: Computed tomography angiography of the neck with contrast. 3D rendering (Not supervised by radiologist): MIP and/or 3D reconstructed images were created by the technologist. Radiation optimization: All CT scans at this facility use at least one of these dose optimization techniques: automated exposure control; mA and/or kV adjustment per patient size (includes targeted exams where dose is matched to clinical indication); or iterative reconstruction. Contrast material: ISOVUE 370; Contrast volume: 100 ml; Contrast route: INTRAVENOUS (IV); COMPARISON: CT HEAD/BRAIN WO CON 02/08/2021 3:46 PM FINDINGS: Right common carotid artery: No stenosis. No dissection or occlusion. Right internal carotid artery: No stenosis of the extracranial segment. No dissection or occlusion. Right external carotid artery: No occlusion or stenosis of the origin. Left common carotid artery: No stenosis. No dissection or occlusion. Left internal carotid artery: No stenosis of the extracranial segment. No dissection or occlusion. Left external carotid artery: No occlusion or stenosis of the origin. Right vertebral artery: No stenosis. No dissection or occlusion. Left vertebral artery: No stenosis. No dissection or occlusion. Other arteries: No dissection, aneurysm or stenosis in the extracranial carotid systems or vertebral arteries. Thyroid: 2.3 cm dominant nodule right lobe of thyroid. Further evaluation with ultrasound non emergently would be recommended unless this has been previously worked up. Soft tissues: Normal. No significant soft tissue swelling. Bones/joints: No acute fracture. IMPRESSION: 1. No dissection, aneurysm or stenosis in the extracranial carotid systems or vertebral arteries. 2. 2.3 cm dominant nodule right lobe of thyroid. Further evaluation with ultrasound non emergently would be recommended unless this has been previously worked up. COMMENTS: Consistent with the [employer]'s Incidental Findings Committee white paper (J Am Crystal Radiol 2015): In patients aged 35 years and older with an incidental thyroid nodule equal to or greater than 1.[address], MRI or extrathyroidal US, further evaluation with dedicated thyroid US is recommended for patients with normal life expectancy and without comorbidities. For smaller nodules without suspicious features, no further evaluation or follow up is recommended. REFERENCES: NASCET CRITERIA. The degree of internal carotid artery stenosis is based on NASCET criteria. Normal is no stenosis. Mild is less than 50% stenosis. Moderate is 50-69% stenosis. Severe is 70% to 99% stenosis. Total occlusion is no detectable patent lumen.
--- NOTE | 2021-02-08 15:45 | CT_ITS ---
PROCEDURE INFORMATION: Exam: CT Angiography Head With Contrast, Arteriography Exam date and time: 02/08/2021 3:45 PM Age: 60 years old Clinical indication: Patient HX: Numbness in entire left arm. ; Additional info: Numbness left arm TECHNIQUE: Imaging protocol: Computed tomography angiography of the head with contrast. Exam focused on the arteries. 3D rendering (Not supervised by radiologist): MIP and/or 3D reconstructed images were created by the technologist. Radiation optimization: All CT scans at this facility use at least one of these dose optimization techniques: automated exposure control; mA and/or kV adjustment per patient size (includes targeted exams where dose is matched to clinical indication); or iterative reconstruction. Contrast material: ISOVUE 370; Contrast volume: 100 ml; Contrast route: INTRAVENOUS (IV); COMPARISON: CT HEAD/BRAIN WO CON 02/08/2021 3:46 PM FINDINGS: ANTERIOR CIRCULATION: Right internal carotid artery: Unremarkable. Intracranial segment is patent with no significant stenosis. No aneurysm. Right middle cerebral artery: Unremarkable. No occlusion or significant stenosis. No aneurysm. Right anterior cerebral artery: Unremarkable. No occlusion or significant stenosis. No aneurysm. Left internal carotid artery: Unremarkable. Intracranial segment is patent with no significant stenosis. No aneurysm. Left middle cerebral artery: Unremarkable. No occlusion or significant stenosis. No aneurysm. Left anterior cerebral artery: Unremarkable. No occlusion or significant stenosis. No aneurysm. POSTERIOR CIRCULATION: Right vertebral artery: Unremarkable. No occlusion or significant stenosis. No aneurysm. Left vertebral artery: Unremarkable. No occlusion or significant stenosis. No aneurysm. Basilar artery: No dissection, aneurysm or flow-limiting lesion in the main intracranial arterial branching. Right posterior cerebral artery: Unremarkable. No occlusion or significant stenosis. No aneurysm. Left posterior cerebral artery: Unremarkable. No occlusion or significant stenosis. No aneurysm. Brain: No definite mass, mass effect, or midline shift. Cerebral ventricles: No ventriculomegaly. Bones/joints: Unremarkable. No acute fracture. Soft tissues: Unremarkable. IMPRESSION: No dissection, aneurysm or flow-limiting lesion in the main intracranial arterial branching.
[2021-02-08 15:46] LABS: Basophils # 0.1 K/mm3 (0-0.2); Basophils % 1.2 % (0.1-2.0); Eosinophils # 0.2 K/mm3 (0.0-0.4); Eosinophils % 2.4 % (0.1-12.0); Hematocrit 46.1 % (37.0-47.0); Hemoglobin 15.1 g/dL (12.2-16.2); Lymphocytes # 2.1 K/mm3 (0.7-4.5); Lymphocytes % 32.6 % (10-50); Mean Corpuscular HGB Conc 32.7 g/dL (31.8-35.4); Mean Corpuscular Volume 94.9 fl (81-99); Mean Platelet Volume 8.2 fl (7.4-10.4); Monocytes # 0.4 K/mm3 (0.1-1.0); Neutrophils # 3.8 K/mm3 (1.8-7.8); Neutrophils % 57.7 % (37.0-80.0); Platelet Count 256 K/mm3 (142-424); Red Blood Count 4.86 M/mm3 (4.20-5.40); Red Cell Distribution Width 12.8 % (11.5-17.5); White Blood Count 6.5 K/mm3 (4.8-10.8)
[2021-02-08 15:54] LABS: Chloride 106 mmol/L (98-107)
[2021-02-08 15:55] LABS: Potassium 4.6 mmoL/L (3.5-5.1); Sodium 144 mmol/L (136-145)
[2021-02-08 15:57] LABS: Alanine Aminotransferase 20 U/L (12-78); Aspartate Amino Transferase 34 U/L (14-36); Blood Urea Nitrogen 22 mg/dl (7-17); Creatinine Clearance Estimated 67 mL/min (50-200); Estimated Glomerular Filt Rate 85 ml/min (>60); GFR (African American) 103 ML/MIN (>60)
[2021-02-08 15:58] LABS: Albumin Level 4.5 g/dl (3.5-5.0); Albumin/Globulin Ratio 1.2 (1.1-1.8); Alkaline Phosphatase 57 U/L (38-126); Anion Gap 13.6 mEq/L (5-15); Bilirubin,Total 0.7 mg/dl (0.2-1.3); Calcium 9.5 mg/dl (8.4-10.2); Carbon Dioxide 29 mmol/L (22.0-30.0); Globulin 3.9 g/dL (1.3-3.2); Glucose 111 mg/dl (74-100); Total Protein,Serum 8.4 g/dl (6.3-8.2)
[2021-02-08 16:11] LABS: Troponin I < 0.01 ng/ml (0.00-0.034)
[2021-02-08 16:57] VITALS: BP 113/64; PULSE 59; RESP 16; O2SAT 99
--- NOTE | 2021-02-08 16:58 | PC.NURSE ---
PT RESTING COMFORTABLY, AWAITING CT RESULTS.
--- NOTE | 2021-02-08 17:02 | PC.NURSE ---
DR JOAQUIN BAEZA.
[2021-02-08 17:45] VITALS: BP 118/66; PULSE 58; RESP 18; TEMP 36.8; O2SAT 96
== END 2021-02-08 17:46 | disposition home or self-care (01) ==
PROVIDERS: Emergency Provider Emergency Medicine
DX: R20.2 Paresthesia of skin (principal); R42 Dizziness and giddiness; M54.6 Pain in thoracic spine; Z87.442 Personal history of urinary calculi; Z88.5 Allergy status to narcotic agent
CPT/HCPCS: 70450; 70496; 70498; 80053; 84484; 85025; 93005; 99283; Q9967

== ENCOUNTER → 2022-08-27 10:54 | Outpatient (CLI) | payer OTHER, SELFPAY ==
[2022-08-27 11:06] LABS: Microscopic, Urine URINE MICROSCOPIC (MICROSCOPIC)
[2022-08-27 11:24] LABS: Appearance,Urine CLEAR (Clear); Bilirubin,Urine Negative (Negative); Blood, Urine Negative (Negative); Color,Urine YELLOW (Yellow); Glucose,Urine (UA) Negative (Negative); Ketones,Urine Negative (Negative); Leukocyte Esterase,Urine 1+ (Negative); Nitrate,Urine Negative (Negative); PH,Urine 7.5 (5.0-8.5); Protein,Urine Negative (Negative); Urobilinogen,Urine 0.2 EU/dl (0.2)
[2022-08-27 11:31] LABS: Basophils # 0.1 K/mm3 (0-0.2); Eosinophils # 0.2 K/mm3 (0.0-0.4); Hematocrit 45.2 % (37.0-47.0); Hemoglobin 14.6 g/dL (12.2-16.2); Lymphocytes # 1.7 K/mm3 (0.7-4.5); Lymphocytes % 32.1 % (10-50); Mean Corpuscular HGB Conc 32.3 g/dL (31.8-35.4); Mean Corpuscular Hemoglobin 30.6 pg (27.0-31.2); Mean Corpuscular Volume 94.6 fl (81-99); Mean Platelet Volume 8.5 fl (7.4-10.4); Monocytes # 0.3 K/mm3 (0.1-1.0); Neutrophils % 57.9 % (37.0-80.0); Platelet Count 212 K/mm3 (142-424); Red Blood Count 4.79 M/mm3 (4.20-5.40); Red Cell Distribution Width 12.8 % (11.5-17.5); White Blood Count 5.2 K/mm3 (4.8-10.8)
[2022-08-27 12:00] LABS: Bacteria,Urine Trace /lpf; Squamous Epithelial Cell,Urine Occasional #/hpf (0-5)
[2022-08-27 12:06] LABS: Alanine Aminotransferase 26 U/L (12-78); Albumin Level 4.5 g/dl (3.5-5.0); Albumin/Globulin Ratio 1.5 (1.1-1.8); Alkaline Phosphatase 69 U/L (38-126); Anion Gap 10.3 mEq/L (5-15); Aspartate Amino Transferase 30 U/L (14-36); Bilirubin,Total 1.6 mg/dl (0.2-1.3); Blood Urea Nitrogen 13 mg/dl (7-17); Carbon Dioxide 33 mmol/L (22.0-30.0); Chloride 100 mmol/L (98-107); Chol/HDL Ratio 4.6 (1-3.5); Cholesterol 222 mg/dl (140-200); Estimated Glomerular Filt Rate 85 ml/min (>60); GFR (African American) 102 ML/MIN (>60); Glucose 104 mg/dl (74-100); HDL Cholesterol 48 mg/dl (40-60); Potassium 4.3 mmoL/L (3.5-5.1); Sodium 139 mmol/L (136-145); Total Protein,Serum 7.5 g/dl (6.3-8.2); Triglycerides 109 mg/dl (30-150); VLDL Cholesterol 22 mg/dL (0-40)
[2022-08-27 12:17] LABS: Direct LDL Cholesterol 133.41 mg/dL (100-129)
[2022-08-27 12:21] LABS: 25-OH Vitamin D, Total 34.9 ng/mL (30-100)
[2022-08-27 12:36] LABS: Thyroid Stimulating Hormone 1.27 uIU/mL (0.465-4.68)
[2022-08-27 13:12] LABS: Vitamin B12 751 pg/mL (239-931)
[2022-08-27 13:13] LABS: Folate > 20.00 ng/mL
== END ==
PROVIDERS: PCP Family Medicine; Visit Provider Family Medicine
DX: R42 Dizziness and giddiness (principal); R51.9 Headache, unspecified; R53.83 Other fatigue
CPT/HCPCS: 36415; 80053; 80061; 81001; 82306; 82607; 82746; 84443; 85025; 87086

== ENCOUNTER 2022-09-23 14:55 | Emergency (ER) | payer OTHER, SELFPAY ==
[2022-09-23] VITALS (8 sets, daily range): BP systolic 103–160; BP diastolic 59–94; PULSE 56–88; RESP 16–18; TEMP 36.8; O2SAT 95–99; BMI 25.9
--- NOTE | 2022-09-23 14:52 | ECG_ITS ---
APPROVED REPORT Exam: Resting ECG HR:62 bpm ECG Measurements Heart Rate 62 AXES NM 149 P 58 QRSd 105 QRS 55 QT 403 T 42 QTc 409 Conclusion SINUS RHYTHM POSSIBLE LEFT ATRIAL ENLARGEMENT [-0.1mV P-WAVE IN V1/V2] MINIMAL ST DEPRESSION [0.025+ mV ST DEPRESSION] BORDERLINE ECG UNCONFIRMED REPORT Electronically signed by : Collin Reynoso MD 09/25/2022 14:24:44
--- NOTE | 2022-09-23 14:59 | PC.NURSE ---
Lab work sent
--- NOTE | 2022-09-23 15:13 | XR_ITS ---
FINAL REPORT CLINICAL HISTORY: chest pain COMPARISON: 11/13/2020 FINDINGS: Two views of the chest were obtained. The heart size and pulmonary vascularity are within normal limits. The mediastinum is normal. No acute pulmonary abnormality is identified. There is no pneumothorax. There are moderate degenerative changes in the thoracic spine. IMPRESSION: No active cardiopulmonary disease. Reviewed, Interpreted and Dictated by Smooth Lam III, MD Transcribed by Doris Bro Authenticated and [facility]
[2022-09-23 15:59] LABS: Chloride 97 mmol/L (98-107); Sodium 141 mmol/L (136-145)
--- NOTE | 2022-09-23 16:02 | HMH.EDGENADL ---
Discharge Plan Disposition Patient Disposition: Home, Self-Care Condition: Good Chief Complaint: Chest Pain Prescriptions Prescriptions: No Action Fish Oil 100-160-1,000 mg capsule 1 cap PO BID magnesium citrate 125 mg capsule 150 mg PO DAILY pyridoxine (vitamin B6) 50 mg tablet 50 mg PO DAILY yhu-favo-tnmpi-drve-tpc-ktu-in 220 mg capsule 2 cap PO DAILY Rx Instructions: administer with a meal fluticasone propionate [Flonase Allergy Relief] 50 mcg/actuation spray,suspension 2 spray intranasal DAILY Qty: 16 1RF Rx Instructions: administer 2 sprays into each nostril bromelains 500 mg tablet 1,000 mg PO DAILY Rx Instructions: administer after a meal methylprednisolone [Medrol (Davey)] 4 mg tablets,dose pack 4 mg PO DAILY Qty: 21 0RF Rx Instructions: Take as directed multivitamin,ok-vphd-lgwkisem [Complete Multivitamin] tablet 1 tab PO DAILY Referrals Follow up/Referrals: Rachelle Martínez DO [Primary Care Provider] - See instructions Activity Restrictions/Add. Instructions Additional Instructions/Restrictions: Take Tylenol 1000 mg every 6 hours (4 times daily) and ibuprofen 400 mg every 6 hours (4 times daily) as needed with food and water to prevent GI upset and kidney damage. Follow-up with your family doctor regarding this visit to the emergency department. Clinical Impressions Clinical Impression: Fatigue, Pleurisy Discharge ED Provider: Griffin Castellon General Adult HPI General Chief complaint: Chest Pain Stated complaint: CP Time Seen by Provider: 09/23/22 15:04 History of Present Illness HPI narrative: This is a 62-year-old female with history of long COVID presenting with weakness. Patient has seen her primary care provider numerous times for this, but has been feeling fatigued. No chest pain, shortness of breath, nausea, vomiting, diaphoresis, neurologic deficits. Intermittently having moderate twinges in the left side of her chest and chest pressure that does not radiate. Not currently having the symptoms. Related Data Home Medications Medication Instructions Recorded Confirmed multivitamin,ra-xnot-pqdkcpjt 1 tab PO DAILY Supplement 07/02/17 09/18/22 (Complete Multivitamin tablet) csiklsd-llrbbxrlk-oltwsv-frusd-wewzizix-ldwem-invertase 2 cap PO DAILY 08/27/22 09/18/22 220 mg capsule magnesium citrate 125 mg capsule 150 mg PO DAILY 08/27/22 09/18/22 omega 6-fio-fmn-fish oil 100 1 cap PO BID 08/27/22 09/18/22 mg-160 mg-1,000 mg capsule (Fish Oil) pyridoxine (vitamin B6) 50 mg 50 mg PO DAILY 08/27/22 09/18/22 tablet bromelains 500 mg tablet 1,000 mg PO DAILY 09/18/22 09/18/22 Previous Rx's Medication Instructions Recorded fluticasone propionate 50 2 spray intranasal DAILY #16 grams 08/27/22 mcg/actuation nasal spray,suspension (Flonase Allergy Relief) methylprednisolone 4 mg tablets in 4 mg PO DAILY #21 tabs 09/18/22 a dose pack (Medrol (Davey)) Allergies Allergy/AdvReac Type Severity Reaction Status Date / Time codeine [CODEINE] Allergy Unknown NA-NAUSEA/V Verified 09/18/22 10:00 OMITING PFSH PFSH Disclaimer: The information contained in this section may have been updated after the patient was seen, as this information can be updated by other users. 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 Kidney stones Menopause Multiple chemical sensitivity syndrome SBO (small bowel obstruction) Transient partial obstruction of undetermined etiology (quickly resolved) Surgical History H/O colonoscopy 2020 H/O esophagogastroduodenoscopy 2016 H/O lithotripsy Hx of cholecystectomy 10/2016 Family History Father Hypertension Stroke Mother Cancer leukemia Diabetes Hypertension Social History (Review
[2022-09-23 16:03] LABS: Blood Urea Nitrogen 17 mg/dl (7-17); Calcium 9.8 mg/dl (8.4-10.2); Carbon Dioxide 35 mmol/L (22.0-30.0); Creatinine Clearance Estimated 64 mL/min (50-200); Estimated Glomerular Filt Rate 85 ml/min (>60); GFR (African American) 102 ML/MIN (>60); Glucose 132 mg/dl (74-100)
[2022-09-23 16:27] LABS: Troponin I < 0.01 ng/ml (0.00-0.034)
[2022-09-23 16:37] LABS: Basophils % 0.4 % (0.1-2.0); Eosinophils % 0.4 % (0.1-12.0); Hematocrit 47.2 % (37.0-47.0); Hemoglobin 15.4 g/dL (12.2-16.2); Lymphocytes # 3.5 K/mm3 (0.7-4.5); Lymphocytes % 36.6 % (10-50); Mean Corpuscular HGB Conc 32.7 g/dL (31.8-35.4); Mean Corpuscular Hemoglobin 31.3 pg (27.0-31.2); Mean Corpuscular Volume 95.5 fl (81-99); Mean Platelet Volume 8.9 fl (7.4-10.4); Monocytes # 0.5 K/mm3 (0.1-1.0); Monocytes % 4.9 % (1.7-9.3); Neutrophils # 5.4 K/mm3 (1.8-7.8); Neutrophils % 57.6 % (37.0-80.0); Platelet Count 247 K/mm3 (142-424); Red Blood Count 4.94 M/mm3 (4.20-5.40); White Blood Count 9.4 K/mm3 (4.8-10.8)
[2022-09-23 16:39] LABS: D-Dimer 0.73 ug/mL (0.0-0.5)
--- NOTE | 2022-09-23 17:08 | CT_ITS ---
PROCEDURE INFORMATION: Exam: CTA Chest With Contrast Exam date and time: 09/23/2022 5:36 PM Age: 62 years old Clinical indication: Pain; Chest pressure; Additional info: Elevated d-dimer TECHNIQUE: Imaging protocol: Computed tomographic angiography of the chest with contrast. 3D rendering (Not supervised by radiologist): MIP and/or 3D reconstructed images were created by the technologist. Radiation optimization: All CT scans at this facility use at least one of these dose optimization techniques: automated exposure control; mA and/or kV adjustment per patient size (includes targeted exams where dose is matched to clinical indication); or iterative reconstruction. Contrast material: ISOVUE 370; Contrast volume: 70 ml; Contrast route: INTRAVENOUS (IV); REPORTING DATA: Count of CT and Cardiac NM exams in prior 12 months: This patient has received 0 known CTs and 0 known cardiac nuclear medicine studies in the 12 months prior to the current study. COMPARISON: CR XR CHEST 2V 09/23/2022 3:30 PM FINDINGS: Pulmonary arteries: Pulmonary vasculature is adequately opacified without filling defects or other evidence of acute pulmonary embolism. Aorta: Unremarkable. No aortic aneurysm. No aortic dissection. Lungs: Mild subsegmental atelectasis left lingula otherwise lung pizano are aerated and clear. Pleural spaces: Unremarkable. No pneumothorax. No pleural effusion. Heart: Heart is mildly enlarged. No significant coronary artery calcifications. No significant pericardial effusion. Lymph nodes: Unremarkable. No enlarged lymph nodes. Bones/joints: Mild degenerative changes thoracic spine. No acute bony abnormalities. Soft tissues: Unremarkable. IMPRESSION: Negative CT angiogram of the chest. No evidence of acute pulmonary embolism.
[2022-09-23 18:52] LABS: Troponin I < 0.01 ng/ml (0.00-0.034)
== END 2022-09-23 20:11 | disposition home or self-care (01) ==
PROVIDERS: Emergency Provider Emergency Medicine; PCP Family Medicine
DX: R07.9 Chest pain, unspecified (principal); R09.1 Pleurisy
CPT/HCPCS: 36415; 71046; 71275; 80048; 84484; 85025; 85378; 93005; 99285; Q9967

== ENCOUNTER 2022-09-30 18:43 | Emergency (ER) | payer OTHER, SELFPAY ==
--- NOTE | 2022-09-30 18:42 | ECG_ITS ---
APPROVED REPORT Exam: Resting ECG HR:61 bpm ECG Measurements Heart Rate 61 AXES VA 164 P 79 QRSd 99 QRS 82 QT 435 T 78 QTc 439 Conclusion SINUS RHYTHM MINIMAL ST DEPRESSION [0.025+ mV ST DEPRESSION] BORDERLINE ECG UNCONFIRMED REPORT Electronically signed by : Collin Reynoso MD 10/01/2022 21:15:01
[2022-09-30 18:43] VITALS: BP 153/89; PULSE 65; RESP 18; TEMP 36.4; O2SAT 98; BMI 25.7
--- NOTE | 2022-09-30 18:47 | XR_ITS ---
PROCEDURE INFORMATION: Exam: XR Chest Exam date and time: 09/30/2022 7:19 PM Age: 62 years old Clinical indication: Patient HX: Shortness of breath, similar symptoms to her visit here last week. ; Additional info: SOA TECHNIQUE: Imaging protocol: Radiologic exam of the chest. Views: 1 view. AP portable upright exam 7:20 p.m. COMPARISON: CR XR CHEST 2V 09/23/2022 3:30 PM FINDINGS: Lungs: No acute pulmonary findings. No pulmonary consolidation. Lung volumes within normal limits. Pulmonary vessels do not appear congested. Pleural spaces: Unremarkable. No significant pleural effusion. No pneumothorax. Heart/Mediastinum: Cardiac silhouette appears within upper limits normal considering portable AP technique. Bones/joints: There are spinal degenerative changes, with multilevel disc narrrowing and spondylosis. IMPRESSION: No acute findings or significant change compared with 09/23/2022.
--- NOTE | 2022-09-30 18:59 | PC.NURSE ---
When pt presents to ED pt requesting to have her echo and carotid doppler obtained tonight while in ED. pt informed that they are not currently in house. pt then states she has these test scheduled for next Wednesday. pt in agreeance to work up.
--- NOTE | 2022-09-30 19:05 | PC.NURSE ---
radiology at bedside.
[2022-09-30 19:07] LABS: Chloride 102 mmol/L (98-107); Potassium 3.6 mmoL/L (3.5-5.1); Sodium 138 mmol/L (136-145)
[2022-09-30 19:10] LABS: Anion Gap 9.6 mEq/L (5-15); Blood Urea Nitrogen 13 mg/dl (7-17); Calcium 9.1 mg/dl (8.4-10.2); Carbon Dioxide 30 mmol/L (22.0-30.0); Creatinine Clearance Estimated 64 mL/min (50-200); Estimated Glomerular Filt Rate 101 ml/min (>60); GFR (African American) 122 ML/MIN (>60); Glucose 95 mg/dl (74-100)
[2022-09-30 19:11] LABS: Basophils # 0.1 K/mm3 (0-0.2); Basophils % 0.8 % (0.1-2.0); Eosinophils # 0.2 K/mm3 (0.0-0.4); Eosinophils % 2.2 % (0.1-12.0); Hematocrit 45.1 % (37.0-47.0); Hemoglobin 14.7 g/dL (12.2-16.2); Lymphocytes # 3.1 K/mm3 (0.7-4.5); Lymphocytes % 46.2 % (10-50); Mean Corpuscular HGB Conc 32.5 g/dL (31.8-35.4); Mean Corpuscular Hemoglobin 30.7 pg (27.0-31.2); Mean Corpuscular Volume 94.6 fl (81-99); Mean Platelet Volume 7.9 fl (7.4-10.4); Monocytes # 0.3 K/mm3 (0.1-1.0); Monocytes % 4.9 % (1.7-9.3); Neutrophils # 3.1 K/mm3 (1.8-7.8); Neutrophils % 45.9 % (37.0-80.0); Platelet Count 228 K/mm3 (142-424); Red Blood Count 4.77 M/mm3 (4.20-5.40); Red Cell Distribution Width 12.9 % (11.5-17.5); White Blood Count 6.8 K/mm3 (4.8-10.8)
[2022-09-30 19:31] LABS: Troponin I < 0.01 ng/ml (0.00-0.034)
--- NOTE | 2022-09-30 20:17 | HMH.EDSOB ---
Discharge Plan Disposition Patient Disposition: Home, Self-Care Prescriptions Prescriptions: New nitroglycerin 0.4 mg tablet, sublingual 0.4 mg sublingual Q5M PRN (Reason: chest pain) Qty: 20 0RF Rx Instructions: do not exceed 3 doses per episode No Action Fish Oil 100-160-1,000 mg capsule 1 cap PO BID magnesium citrate 125 mg capsule 150 mg PO DAILY pyridoxine (vitamin B6) 50 mg tablet 50 mg PO DAILY mnz-bfsf-heeer-levw-jhl-ear-in 220 mg capsule 2 cap PO DAILY Rx Instructions: administer with a meal bromelains 500 mg tablet 1,000 mg PO DAILY Rx Instructions: administer after a meal multivitamin,vr-zjsa-rtqcsyzg [Complete Multivitamin] tablet 1 tab PO DAILY vit A-vit D3-vit E-vit K 2,000 unit-2000 unit-1,000 mcg capsule 1 cap PO .qd L-Carnitine 500 mg tablet 1,000 mg PO DAILY Rx Instructions: must administer with a meal/food vitamin B complex [B Complex-Vitamin B12] Tablet 1 tab PO DAILY olive leaf extract 250 mg capsule 250 mg PO DAILY fluticasone propionate [Flonase Allergy Relief] 50 mcg/actuation spray,suspension 2 spray intranasal DAILY PRN Rx Instructions: administer 2 sprays into each nostril Referrals Follow up/Referrals: Rachelle Martínez DO [Primary Care Provider] - See instructions Clinical Impressions Clinical Impression: BRAVO (dyspnea on exertion) Discharge ED Provider: Hugo Marsh Resp/SOB HPI General Chief Complaint: Shortness of Breath/Dyspnea Stated Complaint: SOA Time Seen by Provider: 09/30/22 20:01 Mode of Arrival: Ambulatory Source of Information: Patient Limitations: No Limitations Description of Symptoms (Recalled from ER Triage Doc. by RN): pt presents to ED c/o SOA and chest heaviness. pt states she was seen approx a week ago in the ED for similar symptoms. pt states today she saw Dr. Daley and has an echo and carotid doppler scheduled for next Wednesday. pt also states she has lingering symptoms of covid from July. History of Present Illness 62-year-old white female presents with chest heaviness radiating through to her back accompanied by air hunger. This was after exertion. She notes that since her second bout of COVID she has had significant dyspnea on exertion and limitation of her activity. She is scheduled for carotid Dopplers and echocardiogram with the recommendation by her primary care that she have a cardiology consult as well. Patient's mother and father both had heart disease in their 70s. Patient lists codeine as an allergy with this episode she had no nausea vomiting or diaphoresis the heaviness did not extend to her jaws or arm. She has also had concurrent issues with her left neck with pulsatile sensitization and has recently been on steroids to try apparently clear the eustachian tube and the swelling in that left neck and ear area. Related Data Home Medications Medication Instructions Recorded Confirmed multivitamin,sp-zywc-yqznzhts 1 tab PO DAILY Supplement 07/02/17 09/30/22 (Complete Multivitamin tablet) vhvkrwd-czebdyinw-caxngo-jhyvu-eusaujxt-zlqpw-invertase 2 cap PO DAILY 08/27/22 09/30/22 220 mg capsule magnesium citrate 125 mg capsule 150 mg PO DAILY 08/27/22 09/30/22 omega 5-kqu-izn-fish oil 100 1 cap PO BID 08/27/22 09/30/22 mg-160 mg-1,000 mg capsule (Fish Oil) pyridoxine (vitamin B6) 50 mg 50 mg PO DAILY 08/27/22 09/30/22 tablet bromelains 500 mg tablet 1,000 mg PO DAILY 09/18/22 09/30/22 fluticasone propionate 50 2 spray intranasal DAILY PRN 09/30/22 mcg/actuation nasal spray,suspension (Flonase Allergy Relief) levocarnitine 500 mg tablet 1,000 mg PO DAILY 09/30/22 09/30/22 (L-Carnitine) olive leaf extract 250 mg capsule 250 mg PO DAILY 09/30/22 09/30/22 vit A 2,000 unit-vit D3 2,000 1 cap PO .qd 09/30/22 09/30/22 unit-vit E-vitamin K 1,000 mcg capsule vitamin B complex (B 1 tab PO DAILY 09/30/2209/06
[2022-09-30 20:38] LABS: D-Dimer 0.77 ug/mL (0.0-0.5)
[2022-09-30 20:51] LABS: Troponin I < 0.01 ng/ml (0.00-0.034)
[2022-09-30 21:25] VITALS: BP 146/87; PULSE 71; RESP 18; TEMP 36.8; O2SAT 97
== END 2022-09-30 21:27 | disposition home or self-care (01) ==
PROVIDERS: Emergency Provider Emergency Medicine; PCP Family Medicine
DX: R06.02 Shortness of breath (principal); Z86.16 Personal history of COVID-19
CPT/HCPCS: 71045; 80048; 84484; 85025; 85378; 93005; 99285

== ENCOUNTER 2022-10-02 10:33 | Emergency (ER) | payer OTHER, SELFPAY ==
--- NOTE | 2022-10-02 10:32 | ECG_ITS ---
APPROVED REPORT Exam: Resting ECG HR:61 bpm ECG Measurements Heart Rate 61 AXES [place] 145 P 65 QRSd 98 QRS 65 QT 413 T 47 QTc 415 Conclusion SINUS RHYTHM MINIMAL ST DEPRESSION [0.025+ mV ST DEPRESSION] BORDERLINE ECG UNCONFIRMED REPORT Electronically signed by : Collin Reynoso MD 10/02/2022 14:24:31
[2022-10-02 10:33] VITALS: BP 129/81; PULSE 72; RESP 16; TEMP 36.6; O2SAT 99; BMI 25.7
[2022-10-02 11:00] VITALS: BP 131/86; PULSE 70; O2SAT 97
--- NOTE | 2022-10-02 11:11 | XR_ITS ---
FINAL REPORT CLINICAL HISTORY: chest pain COMPARISON: September 23, 2022 FINDINGS: Two views of the chest were obtained. The heart size and pulmonary vascularity are within normal limits. The mediastinum is normal. No acute pulmonary abnormality is identified. There is no pneumothorax. The bony thorax is intact. IMPRESSION: No active cardiopulmonary disease. Authenticated and [facility]
--- NOTE | 2022-10-02 11:15 | PC.NURSE ---
ROUNDED ON PT, ASSISTED TO BR
--- NOTE | 2022-10-02 11:20 | PC.NURSE ---
pt to radiology via
[2022-10-02 11:22] LABS: Chloride 103 mmol/L (98-107); Sodium 138 mmol/L (136-145)
[2022-10-02 11:23] LABS: Potassium 3.6 mmoL/L (3.5-5.1)
[2022-10-02 11:25] LABS: Basophils % 0.7 % (0.1-2.0); Blood Urea Nitrogen 11 mg/dl (7-17); Creatinine Clearance Estimated 64 mL/min (50-200); Eosinophils # 0.1 K/mm3 (0.0-0.4); Eosinophils % 2.2 % (0.1-12.0); Estimated Glomerular Filt Rate 85 ml/min (>60); GFR (African American) 102 ML/MIN (>60); Hematocrit 42.9 % (37.0-47.0); Hemoglobin 13.8 g/dL (12.2-16.2); Lymphocytes # 2.6 K/mm3 (0.7-4.5); Lymphocytes % 43.7 % (10-50); Mean Corpuscular HGB Conc 32.1 g/dL (31.8-35.4); Mean Corpuscular Hemoglobin 30.6 pg (27.0-31.2); Mean Corpuscular Volume 95.3 fl (81-99); Mean Platelet Volume 8.1 fl (7.4-10.4); Monocytes # 0.3 K/mm3 (0.1-1.0); Monocytes % 5.8 % (1.7-9.3); Neutrophils # 2.8 K/mm3 (1.8-7.8); Neutrophils % 47.6 % (37.0-80.0); Platelet Count 233 K/mm3 (142-424); Red Cell Distribution Width 12.8 % (11.5-17.5); White Blood Count 5.8 K/mm3 (4.8-10.8)
--- NOTE | 2022-10-02 11:25 | PC.NURSE ---
PT RETURNED FROM XR
[2022-10-02 11:26] LABS: Anion Gap 8.6 mEq/L (5-15); Calcium 9.5 mg/dl (8.4-10.2); Carbon Dioxide 30 mmol/L (22.0-30.0)
--- NOTE | 2022-10-02 11:35 | PC.NURSE ---
DR LION AT BEDSIDE
[2022-10-02 11:40] LABS: Glucose 110 mg/dl (74-100)
[2022-10-02 11:41] LABS: Troponin I < 0.01 ng/ml (0.00-0.034)
--- NOTE | 2022-10-02 11:41 | HMH.EDGENADL ---
Discharge Plan Disposition Patient Disposition: Home, Self-Care Condition: Good Chief Complaint: Chest Pain Prescriptions Prescriptions: No Action Fish Oil 100-160-1,000 mg capsule 1 cap PO BID magnesium citrate 125 mg capsule 150 mg PO DAILY pyridoxine (vitamin B6) 50 mg tablet 50 mg PO DAILY bqd-sfay-upenf-bfbe-oid-zvr-in 220 mg capsule 2 cap PO DAILY Rx Instructions: administer with a meal bromelains 500 mg tablet 1,000 mg PO DAILY Rx Instructions: administer after a meal multivitamin,qo-mgpo-mcisafdc [Complete Multivitamin] tablet 1 tab PO DAILY vit A-vit D3-vit E-vit K 2,000 unit-2000 unit-1,000 mcg capsule 1 cap PO .qd L-Carnitine 500 mg tablet 1,000 mg PO DAILY Rx Instructions: must administer with a meal/food vitamin B complex [B Complex-Vitamin B12] Tablet 1 tab PO DAILY olive leaf extract 250 mg capsule 250 mg PO DAILY fluticasone propionate [Flonase Allergy Relief] 50 mcg/actuation spray,suspension 2 spray intranasal DAILY PRN Rx Instructions: administer 2 sprays into each nostril nitroglycerin 0.4 mg tablet, sublingual 0.4 mg sublingual Q5M PRN (Reason: chest pain) Qty: 20 0RF Rx Instructions: do not exceed 3 doses per episode Referrals Follow up/Referrals: Rachelle Martínez DO [Primary Care Provider] - See instructions Activity Restrictions/Add. Instructions Additional Instructions/Restrictions: At this time was felt you are safe to be discharged home. If new or worsening symptoms please not hesitate to return for continued evaluation. Please follow-up with cardiology at 9 AM on Wednesday. Clinical Impressions Clinical Impression: Chest discomfort Discharge ED Provider: Julio Macedo General Adult HPI General Chief complaint: Chest Pain Stated complaint: chest pain Time Seen by Provider: 10/02/22 11:42 Mode of Arrival: Ambulatory Limitations: No Limitations Description of Symptoms (Recalled from ER Triage Doc. by RN): PT REPORTS CHEST DISCOMFORT/FULLNESS PT DENIES SHORTNESS OF BREATH, NO N/V. PT HAS BEEN EVALUATED FOR SAME EPISODE THIS WEDNESDAY AND LAST WEDNESDAY. PT REPORTS TAKING NITRO AROUND 1015 WITH SOME RELIEF THIS AM History of Present Illness HPI narrative: Patient is a 62-year-old female with past medical history of COVID, dyspnea on exertion, persistent fatigue who presents emergency department for evaluation of chest pressure. Onset was acute, earlier today. Patient has had multiple episodes over the last week that been evaluated in the emergency department. Previous work-up reviewed by me and is nonactionable. Patient has no CT evidence of pulmonary embolism or dissection. Serial troponins previously have been nonactionable with no significant delta. Patient's chest pressure was relieved with sublingual nitroglycerin today. She has outpatient cardiology work-up which has yet to be scheduled. No other acute complaints at this time Related Data Home Medications Medication Instructions Recorded Confirmed multivitamin,sm-aigg-plwmsyzc 1 tab PO DAILY Supplement 07/02/17 09/30/22 (Complete Multivitamin tablet) pezaklu-lomugkdou-qvgbgu-vyxbx-xltfwugy-zmzag-invertase 2 cap PO DAILY 08/27/22 09/30/22 220 mg capsule magnesium citrate 125 mg capsule 150 mg PO DAILY 08/27/22 09/30/22 omega 3-fsl-moa-fish oil 100 1 cap PO BID 08/27/22 09/30/22 mg-160 mg-1,000 mg capsule (Fish Oil) pyridoxine (vitamin B6) 50 mg 50 mg PO DAILY 08/27/22 09/30/22 tablet bromelains 500 mg tablet 1,000 mg PO DAILY 09/18/22 09/30/22 fluticasone propionate 50 2 spray intranasal DAILY PRN 09/30/22 mcg/actuation nasal spray,suspension (Flonase Allergy Relief) levocarnitine 500 mg tablet 1,000 mg PO DAILY 09/30/22 09/30/22 (L-Carnitine) olive leaf extract 250 mg capsule 250 mg PO DAILY 09/30/22 09/30/22 vit A 2,000 unit-vit D3 2,000 1 cap PO .qd 09/30/22 09/30/22
--- NOTE | 2022-10-02 11:59 | PC.NURSE ---
spoke to dana collado said to relay to pt to show up wednesday10/05/22 @ 9:00 am
[2022-10-02 13:30] VITALS: BP 119/65; PULSE 63; O2SAT 99
[2022-10-02 14:00] VITALS: BP 110/67; PULSE 62; O2SAT 99
[2022-10-02 14:03] LABS: Troponin I < 0.01 ng/ml (0.00-0.034)
[2022-10-02 14:30] VITALS: BP 129/68; PULSE 60; RESP 18; O2SAT 98
--- NOTE | 2022-10-02 14:55 | PC.NURSE ---
ROUNDED ON PT AT THIS TIME. UPDATED ON POC. NO NEEDS AT TIME
[2022-10-02 15:19] VITALS: BP 103/68; PULSE 64; RESP 18; TEMP 36.7; O2SAT 96
== END 2022-10-02 15:22 | disposition home or self-care (01) ==
PROVIDERS: Emergency Provider Emergency Medicine; PCP Family Medicine
DX: R07.9 Chest pain, unspecified (principal)
CPT/HCPCS: 36415; 71046; 80048; 84484; 85025; 93005; 99285

== ENCOUNTER → 2022-10-08 07:47 | Outpatient (CLI) | payer OTHER, SELFPAY | PROVIDERS: PCP Family Medicine; Visit Provider Physician Assistant | DX: R06.09 Other forms of dyspnea (principal); R07.9 Chest pain, unspecified; E78.5 Hyperlipidemia, unspecified | CPT/HCPCS: 78452; 93017; A9502 ==

== ENCOUNTER → 2022-10-09 12:23 | Outpatient (CLI) | payer OTHER, SELFPAY ==
--- NOTE | 2022-10-09 12:50 | CA_ITS ---
FINAL REPORT TECHNIQUE: Color Doppler, duplex Doppler and solis scale sonography of the bilateral neck arterial vasculature was performed. Velocities were measured in the carotid arteries. Stenosis evaluation based on the validated velocity criteria. CLINICAL HISTORY: HLD,PT C/O LT NECK PULSATION,CP FINDINGS: The peak systolic velocity of the right common carotid artery is 95 cm/s. The peak systolic velocity of the right internal carotid artery is 135 cm/s and end diastolic velocity 55 cm/s. The ICA/CCA ratio is 1.7. A minimal amount of plaque is present. The right external carotid artery is patent. The right vertebral artery is patent with antegrade flow. The peak systolic velocity of the left common carotid artery is 96 cm/s. The peak systolic velocity of the left internal carotid artery is 92 cm/s and end diastolic velocity 29 cm/s. The ICA/CCA ratio is 1.0. A minimal amount of plaque is present. The left external carotid artery is patent.The left vertebral artery is patent with antegrade flow. IMPRESSION: Less than 50% bilateral carotid stenoses. Bilateral patent vertebral arteries with antegrade flow. If indicated, CTA or MRA could further evaluate. Reviewed, Interpreted and Dictated by Lance Parks MD Transcribed by Loan Boateng Authenticated and . [facility]
== END ==
PROVIDERS: PCP Family Medicine; Visit Provider Family Medicine
DX: R06.00 Dyspnea, unspecified (principal); R07.9 Chest pain, unspecified; R53.83 Other fatigue; U09.9 Post COVID-19 condition, unspecified
CPT/HCPCS: 93306; 93880

== ENCOUNTER → 2023-03-17 08:52 | Outpatient (CLI) | payer OTHER, SELFPAY ==
[2023-03-17 09:46] LABS: Basophils % 0.7 % (0.1-2.0); Eosinophils # 0.2 K/mm3 (0.0-0.4); Eosinophils % 3.6 % (0.1-12.0); Hematocrit 41.2 % (37.0-47.0); Hemoglobin 13.9 g/dL (12.2-16.2); Lymphocytes % 38.5 % (10-50); Mean Corpuscular HGB Conc 33.8 g/dL (31.8-35.4); Mean Corpuscular Hemoglobin 32.9 pg (27.0-31.2); Mean Corpuscular Volume 97.4 fl (81-99); Mean Platelet Volume 8.6 fl (7.4-10.4); Monocytes # 0.3 K/mm3 (0.1-1.0); Monocytes % 4.9 % (1.7-9.3); Neutrophils # 2.7 K/mm3 (1.8-7.8); Neutrophils % 52.4 % (37.0-80.0); Platelet Count 204 K/mm3 (142-424); Red Blood Count 4.23 M/mm3 (4.20-5.40); Red Cell Distribution Width 12.5 % (11.5-17.5); White Blood Count 5.1 K/mm3 (4.8-10.8)
[2023-03-17 09:59] LABS: Fibrinogen 290 mg/dL (229.9-363.5)
[2023-03-17 10:00] LABS: D-Dimer 0.92 ug/mL (0.0-0.5)
[2023-03-17 10:21] LABS: Hemoglobin A1C 5.7 % (4.0-6.0)
[2023-03-17 10:30] LABS: Alanine Aminotransferase 27 U/L (12-78); Albumin Level 4.5 g/dl (3.5-5.0); Albumin/Globulin Ratio 1.4 (1.1-1.8); Alkaline Phosphatase 64 U/L (38-126); Anion Gap 14.2 mEq/L (5-15); Aspartate Amino Transferase 31 U/L (14-36); Bilirubin,Total 1.5 mg/dl (0.2-1.3); Blood Urea Nitrogen 16 mg/dl (7-17); Calcium 9.4 mg/dl (8.4-10.2); Carbon Dioxide 30 mmol/L (22.0-30.0); Chloride 101 mmol/L (98-107); Estimated Glomerular Filt Rate 101 ml/min (>60); GFR (African American) 122 ML/MIN (>60); Globulin 3.2 g/dL (1.3-3.2); Glucose 105 mg/dl (74-100); Potassium 4.2 mmoL/L (3.5-5.1); Sodium 141 mmol/L (136-145); Total Protein,Serum 7.7 g/dl (6.3-8.2)
[2023-03-17 10:47] LABS: 25-OH Vitamin D, Total 55.4 ng/mL (30-100)
[2023-03-17 11:01] LABS: Thyroid Stimulating Hormone 1.71 uIU/mL (0.465-4.68)
[2023-03-18 09:04] LABS: Homocyst(e)ine 10.1 umol/L (0.0-17.2)
[2023-03-19 11:03] LABS: Triiodothyronine (T3) Free 2.6 pg/mL (2.0-4.4)
[2023-03-22 09:23] LABS: HDL-C 61; LDL-C 169; Triglycerides 85
[2023-03-22 09:24] LABS: Cholesterol, Total 245
[2023-03-22 09:25] LABS: LDL Size 21.2
[2023-03-22 09:26] LABS: LP-IR Score <25
[2023-03-22 09:27] LABS: LDL-P 1907
== END ==
LOC: LAB 08:54
PROVIDERS: PCP Family Medicine; Visit Provider Family Medicine
DX: R06.09 Other forms of dyspnea (principal); R07.9 Chest pain, unspecified; R09.1 Pleurisy; E78.5 Hyperlipidemia, unspecified; Z79.899 Other long term (current) drug therapy
CPT/HCPCS: 36415; 80053; 82306; 83036; 83090; 83704; 84439; 84443; 84481; 85025; 85378; 85384

== ENCOUNTER → 2023-05-21 10:11 | Outpatient (CLI) | payer OTHER, SELFPAY ==
[2023-05-21 10:58] LABS: Basophils % 0.9 % (0.1-2.0); Eosinophils # 0.1 K/mm3 (0.0-0.4); Eosinophils % 2.4 % (0.1-12.0); Hematocrit 41.2 % (37.0-47.0); Hemoglobin 13.6 g/dL (12.2-16.2); Lymphocytes # 1.5 K/mm3 (0.7-4.5); Lymphocytes % 40.9 % (10-50); Mean Corpuscular HGB Conc 33.1 g/dL (31.8-35.4); Mean Corpuscular Hemoglobin 31.9 pg (27.0-31.2); Mean Corpuscular Volume 96.2 fl (81-99); Mean Platelet Volume 8.2 fl (7.4-10.4); Monocytes # 0.2 K/mm3 (0.1-1.0); Monocytes % 6.7 % (1.7-9.3); Neutrophils # 1.8 K/mm3 (1.8-7.8); Neutrophils % 49.2 % (37.0-80.0); Platelet Count 188 K/mm3 (142-424); Red Blood Count 4.28 M/mm3 (4.20-5.40); Red Cell Distribution Width 12.4 % (11.5-17.5); White Blood Count 3.6 K/mm3 (4.8-10.8)
[2023-05-21 11:10] LABS: Alanine Aminotransferase 27 U/L (12-78); Alkaline Phosphatase 70 U/L (38-126); Aspartate Amino Transferase 34 U/L (14-36); Bilirubin,Total 0.9 mg/dl (0.2-1.3); Blood Urea Nitrogen 9 mg/dl (7-17); Carbon Dioxide 30 mmol/L (22.0-30.0); Chloride 104 mmol/L (98-107); Estimated Glomerular Filt Rate 101 ml/min (>60); GFR (African American) 122 ML/MIN (>60)
[2023-05-21 11:11] LABS: Albumin Level 4.3 g/dl (3.5-5.0); Albumin/Globulin Ratio 1.5 (1.1-1.8); Anion Gap 9.1 mEq/L (5-15); Calcium 8.7 mg/dl (8.4-10.2); Globulin 2.9 g/dL (1.3-3.2); Glucose 96 mg/dl (74-100); Potassium 4.1 mmoL/L (3.5-5.1); Sodium 139 mmol/L (136-145); Total Protein,Serum 7.2 g/dl (6.3-8.2)
[2023-05-21 11:41] LABS: Hemoglobin A1C 5.5 % (4.0-6.0)
[2023-05-25 23:23] LABS: Cholesterol, Total 182; HDL-C 56; LDL Size 21.1; LDL-C 121; LDL-P 1453; Triglycerides 82
[2023-05-25 23:24] LABS: LP-IR Score 34
== END ==
PROVIDERS: PCP Family Medicine; Visit Provider Family Medicine
DX: E72.19 Other disorders of sulfur-bearing amino-acid metabolism (principal); E78.00 Pure hypercholesterolemia, unspecified; R73.03 Prediabetes
CPT/HCPCS: 36415; 80053; 83036; 83704; 85025

== ENCOUNTER 2023-07-03 13:04 | Emergency (ER) | payer OTHER, SELFPAY ==
[2023-07-03 13:20] VITALS: BP 123/66; PULSE 65; RESP 18; TEMP 36.7; O2SAT 97; BMI 24.3
[2023-07-03 13:41] LABS: Apearance,Urine Clear (Clear); Bilirubin,Urine Negative (Negative); Blood, Urine Negative (Negative); Color,Urine Yellow (Yellow); Glucose,Urine (UA) Negative (Negative); Ketones,Urine Negative (Negative); PH,Urine 7.5 (5.0-8.5); Protein,Urine Trace (Negative); Specific Gravity, Urine 1.015 (1.005-1.030); UTC Leukocyte Esterase,Urine Negative (Negative); UTC Nitrate,Urine Negative (Negative); Urobilinogen,Urine 0.2 EU/dl (0.2)
--- NOTE | 2023-07-03 13:47 | ED_ITS ---
Discharge Plan Disposition Patient Disposition: Still a Patient Prescriptions Prescriptions: No Action Fish Oil 100-160-1,000 mg capsule 1 cap PO BID magnesium citrate 125 mg capsule 150 mg PO DAILY pyridoxine (vitamin B6) 50 mg tablet 50 mg PO DAILY lkk-tpqx-lcckw-muhy-uer-trr-in 220 mg capsule 2 cap PO DAILY Rx Instructions: administer with a meal bromelains 500 mg tablet 1,000 mg PO DAILY Rx Instructions: administer after a meal multivitamin,du-saps-ynkvoojy [Complete Multivitamin] tablet 1 tab PO DAILY vit A-vit D3-vit E-vit K 2,000 unit-2000 unit-1,000 mcg capsule 1 cap PO .qd L-Carnitine 500 mg tablet 1,000 mg PO DAILY Rx Instructions: must administer with a meal/food olive leaf extract 250 mg capsule 250 mg PO DAILY fluticasone propionate [Flonase Allergy Relief] 50 mcg/actuation spray,suspension 2 spray intranasal DAILY PRN Rx Instructions: administer 2 sprays into each nostril nitroglycerin 0.4 mg tablet, sublingual 0.4 mg sublingual Q5M PRN (Reason: chest pain) Qty: 20 0RF Rx Instructions: do not exceed 3 doses per episode Referrals Follow up/Referrals: Sana Cummings PA [Primary Care Provider] - See instructions Discharge ED Provider: Kina ([facility])[place] [facility] [place] General Stated complaint: abd pain right back pain Mode of Arrival: Ambulatory Source of Information: Patient Limitations: No Limitations Time Seen by Provider: 07/03/23 13:47 Description of Symptoms (Recalled from Triage Doc. by RN): Pt stated that she has right upper quad pain that radiates to her right upper back. She denies any urinary issues. She states that it has been going on for about 3 days. She rates her pain about a 3/10. HEENT Symptoms (Recalled from RN notes): No Resp Symptoms (Recalled from RN notes): No Skin Symptoms (Recalled from RN notes): No MS Symptoms (Recalled from RN notes): No Functional Status (Recalled from RN notes): n/a History of Present Illness Provider Complaint: 63 yr old female presents for right upper quad pain that radiates to her right upper back. denies nausea, hx kidney stones but states it does not feel like her normal kidney stone. She states that it has been going on for about 3 days, seen pcp yesterday and us was ordered for . She rates her pain about a 3/10. Related Data Home Medications Medication Instructions Recorded Confirmed multivitamin,yt-anym-zytbbqeh 1 tab PO DAILY Supplement 07/02/17 07/02/23 (Complete Multivitamin tablet) thyvvlo-dcpchettt-infgri-wtjuy-kabrbhnv-xeykm-invertase 2 cap PO DAILY 08/27/22 07/02/23 220 mg capsule magnesium citrate 125 mg capsule 150 mg PO DAILY 08/27/22 07/02/23 omega 4-ekv-hck-fish oil 100 1 cap PO BID 08/27/22 07/02/23 mg-160 mg-1,000 mg capsule (Fish Oil) pyridoxine (vitamin B6) 50 mg 50 mg PO DAILY 08/27/22 07/02/23 tablet bromelains 500 mg tablet 1,000 mg PO DAILY 09/18/22 07/02/23 fluticasone propionate 50 2 spray intranasal DAILY PRN 09/30/22 07/02/23 mcg/actuation nasal spray,suspension (Flonase Allergy Relief) levocarnitine 500 mg tablet 1,000 mg PO DAILY 09/30/22 07/02/23 (L-Carnitine) olive leaf extract 250 mg capsule 250 mg PO DAILY 09/30/22 07/02/23 vit A 2,000 unit-vit D3 2,000 1 cap PO .qd 09/30/22 07/02/23 unit-vit E 150 unit-K1 1,000 mcg capsule Previous Rx's Medication Instructions Recorded nitroglycerin 0.4 mg sublingual 0.4 mg sublingual Q5M PRN chest 09/30/22 tablet pain #20 tabs Allergies Allergy/AdvReac Type Severity Reaction Status Date / Time codeine [CODEINE] Allergy Unknown NA-NAUSEA/V Verified 07/03/23 13:41 OMITING Worker's Comp Is this a Worker's Comp case?: No [facility] Disclaimer: The information contained in this section may have been updated after the patient was seen, as this information can be updated by other users. 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) H/O colonoscopy H/O esophagogastroduodenoscopy H/O lithotripsy Hx of cholecystectomy Family History , BUZZLE BUFFER) Diabetes Mother CHF (congestive heart failure) Mother Heart attack Father Cancer Mother Hypertension Father Mother Stroke Father Social History , BUZZLE BUFFER) Smoking Status: Never smoker alcohol intake: current substance use type: denies use current occupational status: retired Travel in the last 8 weeks: Inside the [place] household members: spouse housing: house marital status: number of children: 3 current occupation: [employer] current occupational exposures/hazards: No caffeine: Yes ROS Obtained: Yes All systems reviewed & no additional complaints except as documented Constitutional Constitutional: Reports system reviewed and no additional complaints, except as documented and Reports as per HPI Eyes Eyes: Reports system reviewed and no additional complaints, except as documented ENT Ears, Nose, Mouth, and Throat: Reports system reviewed and no additional complaints, except as documented Cardiovascular Cardiovascular: Reports system reviewed and no additional complaints, except as documented Respiratory Respiratory: Reports system reviewed and no additional complaints, except as documented Gastrointestinal Gastrointestingal: Reports system reviewed and no additional complaints, except as documented, as per HPI and abdominal pain Genitourinary Female Genitourinary: Reports system reviewed and no additional complaints, except as documented and Reports as per HPI Musculoskeletal Musculoskeletal: Reports system reviewed and no additional complaints, except as documented Integumentary/Breasts Skin/Breast: Reports system reviewed and no additional complaints, except as documented Neurologic Neurologic: Reports system reviewed and no additional complaints, except as documented Endocrine Endocrine: Reports system reviewed and no additional complaints, except as documented Hematologic/Lymphatic Henatologic/Lymphatic: Reports system reviewed and no additional complaints, except as documented Allergic/Immunologic Allergic/Immunologic: Reports system reviewed and no additional complaints, except as documented Physical Exam General General appearance: alert and in no apparent distress Head Head exam: atraumatic and normocephalic Eye Eye exam: Present normal appearance and PERRL ENT ENT exam: Present normal exam Respiratory Respiratory exam: Present normal lung sounds bilaterally Cardiovascular Cardiovascular exam: Present regular rate and normal rhythm Abdominal Exam Abdominal exam: Present soft, tenderness and normal bowel sounds Neurological Exam Neurological exam: Present alert and oriented X3 Medical Decision Making Medical Records Medical records reviewed: Yes I reviewed the patient's medical records. Himanshu Inquiry Pt receiving controlled substance: No Himanshu was queried for this patient: No Vital Signs: 07/03/23 13:20 Temperature 98.0 F Temperature Source Oral Pulse Rate [Right Radial] 65 Respiratory Rate 18 Blood Pressure [Right Arm] 123/66 Blood Pressure Mean [Right Arm] 85 Blood Pressure Source [Right Arm] Automatic Cuff Blood Pressure Position [Right Arm] Sitting 02 Sat by Pulse Oximetry 97 Oxygen Delivery Method Room Air Lab Data Lab results reviewed: Yes I reviewed the patient's lab results. Lab Results 07/03/23 13:40: Urine Color Yellow, Urine Appearance Clear, Urine pH 7.5, Ur Specific [place] 1.015, Urine Protein Trace, Urine Glucose (UA) Negative, Urine Ketones Negative, Urine Blood Negative, Urine Nitrate Negative, Urine Bilirubin Negative, Urine Urobilinogen 0.2, Ur Leukocyte Esterase Negative Orders (Tests/Meds): ORDERS Category Date Time Status Urine Culture Stat Micro 07/03/23 13:31 Received Medical Decision Narrative: pt requesting ct scan called report to ed spoke kimi quan
[2023-07-03 14:00] VITALS: BP 128/70; PULSE 75; RESP 20; TEMP 36.6; O2SAT 99; BMI 24.3
--- NOTE | 2023-07-03 14:00 | CT_ITS ---
PROCEDURE INFORMATION: Exam: CT Abdomen And Pelvis With Contrast Exam date and time: 07/03/2023 2:40 PM Age: 63 years old Clinical indication: Abdominal pain; Other: Ruq; Additional info: Ruq pain TECHNIQUE: Imaging protocol: Computed tomography of the abdomen and pelvis with contrast. Radiation optimization: All CT scans at this facility use at least one of these dose optimization techniques: automated exposure control; mA and/or kV adjustment per patient size (includes targeted exams where dose is matched to clinical indication); or iterative reconstruction. Contrast material: ISOVUE; Contrast volume: 75 ml; Contrast route: IV; COMPARISON: ABDPELW CT abdomen pelvis w con 07/22/2018 10:23 AM FINDINGS: Liver: Normal. No mass. Gallbladder and bile ducts: Cholecystectomy. Pancreas: 8 mm cyst again demonstrated in the body of the pancreas. Findings unchanged. Spleen: The spleen is unremarkable. Adrenal glands: Adrenal glands unremarkable. Kidneys and ureters: Bilateral punctate nonobstructing renal calculi. Bilateral renal cysts. Stomach and bowel: Unremarkable. No obstruction. No mucosal thickening. Appendix: Appendix unremarkable Intraperitoneal space: Unremarkable. No free air. No significant fluid collection. Vasculature: Unremarkable. No abdominal aortic aneurysm. Lymph nodes: Unremarkable. No enlarged lymph nodes. Urinary bladder: Unremarkable as visualized. Reproductive: Unremarkable as visualized. Bones/joints: Unremarkable. No acute fracture. Soft tissues: Fat filled umbilical hernia IMPRESSION: No evidence of acute abnormality. COMMENTS: Consistent with the [employer]'s Incidental Findings Committee white paper (J Am Crystal Radiol 2018): Any incidental renal lesion less than 1 cm or classified as too small to characterize, or any incidental cystic renal lesion characterized as simple-appearing, is likely benign. No follow-up imaging is recommended for these lesions per consensus recommendations based on imaging criteria.
--- NOTE | 2023-07-03 14:25 | PC.NURSE ---
DR THAKUR AT BEDSIDE
[2023-07-03 14:26] LABS: Basophils # 0.1 K/mm3 (0-0.2); Basophils % 0.9 % (0.1-2.0); Chloride 103 mmol/L (98-107); Eosinophils # 0.1 K/mm3 (0.0-0.4); Hematocrit 45.3 % (37.0-47.0); Hemoglobin 15.3 g/dL (12.2-16.2); Lymphocytes # 1.8 K/mm3 (0.7-4.5); Lymphocytes % 36.8 % (10-50); Mean Corpuscular HGB Conc 33.8 g/dL (31.8-35.4); Mean Corpuscular Volume 94.8 fl (81-99); Monocytes # 0.3 K/mm3 (0.1-1.0); Monocytes % 6.1 % (1.7-9.3); Neutrophils # 2.6 K/mm3 (1.8-7.8); Neutrophils % 54.2 % (37.0-80.0); Platelet Count 203 K/mm3 (142-424); Red Blood Count 4.78 M/mm3 (4.20-5.40); Red Cell Distribution Width 12.6 % (11.5-17.5); Sodium 142 mmol/L (136-145); White Blood Count 4.8 K/mm3 (4.8-10.8)
[2023-07-03 14:29] LABS: Alanine Aminotransferase 32 U/L (12-78); Albumin Level 4.5 g/dl (3.5-5.0); Albumin/Globulin Ratio 1.3 (1.1-1.8); Alkaline Phosphatase 66 U/L (38-126); Aspartate Amino Transferase 37 U/L (14-36); Blood Urea Nitrogen 11 mg/dl (7-17); Calcium 9.7 mg/dl (8.4-10.2); Carbon Dioxide 32 mmol/L (22.0-30.0); Creatinine Clearance Estimated 59 mL/min (50-200); Estimated Glomerular Filt Rate 84 ml/min (>60); GFR (African American) 102 ML/MIN (>60); Globulin 3.5 g/dL (1.3-3.2); Glucose 112 mg/dl (74-100); Lipase 60 U/L (23-300)
--- NOTE | 2023-07-03 14:32 | ED_ITS ---
Discharge Plan Disposition Patient Disposition: Still a Patient Prescriptions Prescriptions: No Action Fish Oil 100-160-1,000 mg capsule 1 cap PO BID magnesium citrate 125 mg capsule 150 mg PO DAILY pyridoxine (vitamin B6) 50 mg tablet 50 mg PO DAILY jbz-ootb-gyjfd-fdnh-kex-ocg-in 220 mg capsule 2 cap PO DAILY Rx Instructions: administer with a meal bromelains 500 mg tablet 1,000 mg PO DAILY Rx Instructions: administer after a meal multivitamin,cy-fwex-juhkozmu [Complete Multivitamin] tablet 1 tab PO DAILY vit A-vit D3-vit E-vit K 2,000 unit-2000 unit-1,000 mcg capsule 1 cap PO .qd L-Carnitine 500 mg tablet 1,000 mg PO DAILY Rx Instructions: must administer with a meal/food olive leaf extract 250 mg capsule 250 mg PO DAILY fluticasone propionate [Flonase Allergy Relief] 50 mcg/actuation spray,suspension 2 spray intranasal DAILY PRN Rx Instructions: administer 2 sprays into each nostril nitroglycerin 0.4 mg tablet, sublingual 0.4 mg sublingual Q5M PRN (Reason: chest pain) Qty: 20 0RF Rx Instructions: do not exceed 3 doses per episode Referrals Follow up/Referrals: Sana Cummings PA [Primary Care Provider] - See instructions Instructions Patient Instructions: DI for Acute Abdominal Pain Discharge ED Provider: Muna Kolb Adult HPI General Chief complaint: Abdominal Pain Stated complaint: abd pain right back pain Time Seen by Provider: 07/03/23 13:47 Mode of Arrival: Ambulatory Source of Information: Patient Limitations: No Limitations Description of Symptoms (Recalled from ER Triage Doc. by RN): pt has been having ruq pain since this , has seen pcp and she has an ultrasound scheduled on wednesday, but pain has gotten worse and she came in for ct scan instead. she says she feels weak and tired and just not her usual self History of Present Illness HPI narrative: This 63-year-old female presents to the ER with concerns of right upper quadrant pain. Patient initially presented to urgent care but was sent over to the ER due to requesting CT scan. Patient saw her PCP for her right upper quadrant pain and is scheduled for an ultrasound on Wednesday, however her pain continues to be persistent and she is concerned about what it could be. She states it is not changed by eating or drinking. She has had previous cholecystectomy 7 years ago. Patient does have a history of kidney stones but states this pain is different. She states this pain is most reminiscent of the pain she had prior to having cholecystectomy but since she does not have a gallbladder she does not know what could be causing it. She states she generally feels mildly ill and not like herself but does not have other specific symptoms at this time. Related Data Home Medications Medication Instructions Recorded Confirmed multivitamin,hm-gehb-xisqwhge 1 tab PO DAILY Supplement 07/02/17 07/02/23 (Complete Multivitamin tablet) yjulxnc-yistitfoa-tghxqt-skdpr-rhlhafbe-wchrm-invertase 2 cap PO DAILY 08/27/22 07/02/23 220 mg capsule magnesium citrate 125 mg capsule 150 mg PO DAILY 08/27/22 07/02/23 omega 0-gkp-hti-fish oil 100 1 cap PO BID 08/27/22 07/02/23 mg-160 mg-1,000 mg capsule (Fish Oil) pyridoxine (vitamin B6) 50 mg 50 mg PO DAILY 08/27/22 07/02/23 tablet bromelains 500 mg tablet 1,000 mg PO DAILY 09/18/22 07/02/23 fluticasone propionate 50 2 spray intranasal DAILY PRN 09/30/22 07/02/23 mcg/actuation nasal spray,suspension (Flonase Allergy Relief) levocarnitine 500 mg tablet 1,000 mg PO DAILY 09/30/22 07/02/23 (L-Carnitine) olive leaf extract 250 mg capsule 250 mg PO DAILY 09/30/22 07/02/23 vit A 2,000 unit-vit D3 2,000 1 cap PO .qd 09/30/22 07/02/23 unit-vit E 150 unit-K1 1,000 mcg capsule Previous Rx's Medication Instructions Recorded nitroglycerin 0.4 mg sublingual 0.4 mg sublingual Q5M PRN chest 09/30/22 tablet pain #20 tabs Allergies Allergy/AdvReac Type Severity Reaction Status Date / Time codeine [CODEINE] Allergy Unknown NA-NAUSEA/V Verified 07/03/23 13:41 OMITING PFSH PFSH Disclaimer: The information contained in this section may have been updated after the patient was seen, as this information can be updated by other users. 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) Smoking Status: Never smoker alcohol intake: current substance use type: denies use current occupational status: retired Travel in the last 8 weeks: [place] the [place] household members: spouse housing: house marital status: number of children: 3 current occupation: [employer] current occupational exposures/hazards: No caffeine: Yes ROS Obtained: Yes All systems reviewed & no additional complaints except as documented Constitutional Constitutional: Denies chills, Denies fever(s), Denies headache(s) and Denies weakness Eyes Eyes: Denies change in vision ENT Ears, Nose, Mouth, and Throat: Denies dizziness, Denies headache(s), Denies nasal congestion and Denies sore throat Cardiovascular Cardiovascular: Denies chest pain, Denies dyspnea and Denies leg edema Respiratory Respiratory: Denies cough and Denies dyspnea Gastrointestinal Gastrointestingal: Reports abdominal pain and nausea (Mild intermittent); Denies constipation, diarrhea or vomiting Genitourinary Female Genitourinary: Denies dysuria Musculoskeletal Musculoskeletal: Denies arthralgias, Denies myalgias, Denies numbness and Denies tingling Integumentary/Breasts Skin/Breast: Denies change in pigmentation Neurologic Neurologic: Denies dizziness, Denies headache(s), Denies numbness, Denies tingling and Denies weakness Physical Exam General General appearance: alert and in no apparent distress Head Head exam: atraumatic and normocephalic Eye Eye exam: Present PERRL and EOMI ENT ENT exam: Present mucous membranes moist Neck Neck exam: Present normal inspection and full ROM Chest Chest inspection: Present symmetric chest wall rise Respiratory Respiratory exam: Present normal lung sounds bilaterally; Absent respiratory distress, wheezes or stridor Cardiovascular Cardiovascular exam: Present regular rate and normal rhythm Abdominal Exam Abdominal exam: Present soft and tenderness (Right upper quadrant and epigastric tenderness without rebound or guarding, nonacute abdomen); Absent distention, guarding or rebound Extremities Exam Extremities exam: Present full ROM Back Exam Back exam: Absent CVA tenderness (R) or CVA tenderness (L) Neurological Exam Neurological exam: Present alert and oriented X3; Absent motor sensory deficit Psychiatric Psychiatric exam: Present normal affect and normal mood Skin Skin exam: Present warm and dry Medical Decision Making Himanshu Inquiry Pt receiving controlled substance: No Vital Signs: 07/03/23 13:20 07/03/23 14:00 Temperature 98.0 F 97.9 F Temperature Source Oral Oral Pulse Rate [Right Radial] 65 75 Respiratory Rate 18 20 Blood Pressure [Right Arm] 123/66 128/70 Blood Pressure Mean [Right Arm] 85 89 Blood Pressure Source [Right Arm] Automatic Cuff Blood Pressure Position [Right Arm] Sitting 02 Sat by Pulse Oximetry 97 99 Oxygen Delivery Method Room Air Room Air Lab Data Lab Results 07/03/23 13:40: Urine Color Yellow, Urine Appearance Clear, Urine pH 7.5, Ur Specific [place] 1.015, Urine Protein Trace, Urine Glucose (UA) Negative, Urine Ketones Negative, Urine Blood Negative, Urine Nitrate Negative, Urine Bilirubin Negative, Urine Urobilinogen 0.2, Ur Leukocyte Esterase Negative 07/03/23 14:05: WBC 4.8, RBC 4.78, Hgb 15.3, Hct 45.3, MCV 94.8, MCH 32.0 H, MCHC 33.8, RDW 12.6, Plt Count 203, MPV 8.0, Neut % (Auto) 54.2, Lymph % (Auto) 36.8, Haines % (Auto) 6.1, Eos % (Auto) 2.0, Baso % (Auto) 0.9, Neut # (Auto) 2.6, Lymph # (Auto) 1.8, [place] # (Auto) 0.3, Eos # (Auto) 0.1, Baso # (Auto) 0.1, Sodium 142, Potassium 4.0, Chloride 103, Carbon Dioxide 32 H, Anion Gap 11.0, BUN 11, Creatinine 0.70, Estimated Creat Clear 59, Estimated GFR 84, Est GFR ( Amer) 102, Glucose 112 H, Lactate 1.0, Calcium 9.7, Total Bilirubin 1.0, AST 37 H, ALT 32, Alkaline Phosphatase 66, Troponin I < 0.01, Total Protein 8.0, Albumin 4.5, Globulin 3.5 H, Albumin/Globulin Ratio 1.3, Lipase 60 07/03/23 14:05 07/03/23 14:05 Orders (Tests/Meds): ED MEDICATIONS Generic Name Dose Route Start Last Admin Trade Name Freq PRN Reason Stop Dose Admin Sodium Chloride 10 ml 07/03/23 14:01 Sodium Chloride 0.9% 10ml Flush Syringe IV 08/02/23 14:00 NEEDED PRN Maintain IV Site Discontinued Medications Generic Name Dose Route Start Last Admin Trade Name Freq PRN Reason Stop Dose Admin Iopamidol 75 ml 07/03/23 14:48 07/03/23 14:48 Iopamidol-370 (76%);100ml Bottle IV 07/03/23 14:49 75 ml ONCE ONE Administration Sodium Chloride 10 ml 07/03/23 14:48 07/03/23 14:48 Sodium Chloride 0.9% 10ml Syr (Rad Only) IV 07/03/23 14:49 10 ml ONCE ONE Administration ORDERS Category Date Time Status CT abdomen pelvis w con Stat Cat Scan 07/03/23 14:00 Taken CXR --portable [XR chest portable] Stat Exams 07/03/23 14:38 Taken POCUS Point of Care (ER Only) Stat Exams 07/03/23 14:26 Ordered Complete Blood Count Auto Diff Stat Lab 07/03/23 14:05 Completed Comprehensive Metabolic Panel Stat Lab 07/03/23 14:05 Completed Lactic Acid Stat Lab 07/03/23 14:05 Completed Lipase Stat Lab 07/03/23 14:05 Completed Trop I [Troponin I] Stat Lab 07/03/23 14:05 Completed Troponin I Q3H Lab 07/03/23 17:45 Ordered Troponin I Q3H Lab 07/03/23 20:45 Ordered Urinalysis and Microscopic Stat Lab 07/03/23 14:00 Ordered Urine Culture Stat Micro 07/03/23 13:31 Received ECG Request Stat Y 07/03/23 14:38 Ordered Medical Decision Narrative: In summary, this 63year old female with a history of prior cholecystectomy and nephrolithiasis which are comorbidities of current condition by increasing overa ll morbidity presents to the emergency department today with right upper quadrant abdominal pain for the last 2 days. On initial evaluation patient is hemodynamically stable, afebrile, GCS 15, resting comfortably. Patient has mild right upper quadrant and epigastric tenderness to palpation without rebound or guarding. Nonacute abdomen. Remainder of exam benign. Differential diagnosis includes but is not limited to hepatitis, biliary dilation, kidney stone, ureterolithiasis, hydronephrosis, urinary tract infection, pancreatitis, electrolyte abnormality, I also considered atypical ACS as patient does states sometimes the pain in her right upper quadrant radiates up the right side of her chest but she does not have shortness of breath or chest pressure. Based on these concerns, I ordered appropriate labs including urine studies, lactic, lipase, and imaging including CT abdomen pelvis, cardiac workup. I also performed bedside ultrasound of the right upper quadrant. See procedure note for details. ECG personally interpreted demonstrates sinus bradycardia, rate 57, normal axis, normal intervals, no STEMI. Labs personally reviewed demonstrate CBC with no leukocytosis or anemia, CMP with normal sodium, potassium, chloride, lactate normal at 1.0, BUN 11, creatinine 0.7, lipase normal at 68, decreasing suspicion for pancreatitis, UA negative for signs of infection, no blood. XR personally interpreted demonstrates no lobar infiltrate, no pneumothorax, no other acute intrathoracic abnormality. See radiology read for final interpretation CT imaging personally interpreted demonstrate no findings of bowel obstruction, no obvious right upper quadrant mass, radiology read pending at the time of physician handoff. Patient continues to be stable but on reassessment. She was handed off to Dr. Azul at physician shift change for further management and disposition. Procedures Miscellaneous Procedure Procedure Performed: Limited RUQ ultrasound, limited right kidney ultrasound Indication: Abdominal pain, nausea Identified structures: -Liver -Right kidney Findings: Sonographic Newton sign: Absent Gallbladder is surgically absent. No obvious dilation of structures within the liver. Liver appears homogenous. No obvious hydronephrosis in the right kidney Impression: Normal-appearing liver, no hydronephrosis in right kidney Images were saved to permanent archive The study was technically adequate CPT 92279-10 CPT: 46810-29 This study was performed by me, and I personally interpreted all images/videos. Based on my clinical judgement, these images were inadequate and did necessitate further imaging to further evaluate the pancreaticobiliary tract and other intra-abdominal contents Critical Care Critical Care Time Critical Care Time: No
--- NOTE | 2023-07-03 14:35 | PC.NURSE ---
PT TO CT
--- NOTE | 2023-07-03 14:38 | XR_ITS ---
PROCEDURE INFORMATION: Exam: XR Chest Exam date and time: 07/03/2023 2:46 PM Age: 63 years old Clinical indication: Pain; Right-sided; Additional info: R chest pain TECHNIQUE: Imaging protocol: Radiologic exam of the chest. Views: 1 view. COMPARISON: CR XR CHEST 2V 10/02/2022 11:11 AM FINDINGS: Lungs: Unremarkable. No consolidation. Pleural spaces: Unremarkable. No pleural effusion. No pneumothorax. Heart/Mediastinum: Unremarkable. No cardiomegaly. Bones/joints: Unremarkable. IMPRESSION: No acute findings.
--- NOTE | 2023-07-03 14:45 | PC.NURSE ---
PT RETURNED FROM CT, WARM BLANKET PROVIDED
[2023-07-03] MEDS: SODIUM CHLORIDE 0.9% 10ML SYR (RAD ONLY) 10 ML IV (14:48)
[2023-07-03] MEDS: IOPAMIDOL-370 (76%);100ML BOTTLE 75 ML IV (14:48)
--- NOTE | 2023-07-03 15:00 | ECG_ITS ---
APPROVED REPORT Exam: Resting ECG HR:57 bpm ECG Measurements Heart Rate 57 AXES WI 168 P 78 QRSd 91 QRS 83 QT 433 T 80 QTc 426 Conclusion SINUS BRADYCARDIA BORDERLINE ECG UNCONFIRMED REPORT Electronically signed by : Collin Reynoso MD 07/06/2023 16:50:54
[2023-07-03 15:07] LABS: Troponin I < 0.01 ng/ml (0.00-0.034)
--- NOTE | 2023-07-03 16:32 | PC.NURSE ---
DR ANAYA AT BEDSIDE TO REEVALUATE PT
--- NOTE | 2023-07-03 16:44 | HMH.EDGENADL ---
Discharge Plan Disposition Patient Disposition: Home, Self-Care Prescriptions Prescriptions: No Action Fish Oil 100-160-1,000 mg capsule 1 cap PO BID magnesium citrate 125 mg capsule 150 mg PO DAILY pyridoxine (vitamin B6) 50 mg tablet 50 mg PO DAILY gkw-mcnm-clpfv-yjdj-erx-nei-in 220 mg capsule 2 cap PO DAILY Rx Instructions: administer with a meal bromelains 500 mg tablet 1,000 mg PO DAILY Rx Instructions: administer after a meal multivitamin,wd-uijk-sbljsqdr [Complete Multivitamin] tablet 1 tab PO DAILY vit A-vit D3-vit E-vit K 2,000 unit-2000 unit-1,000 mcg capsule 1 cap PO .qd L-Carnitine 500 mg tablet 1,000 mg PO DAILY Rx Instructions: must administer with a meal/food olive leaf extract 250 mg capsule 250 mg PO DAILY fluticasone propionate [Flonase Allergy Relief] 50 mcg/actuation spray,suspension 2 spray intranasal DAILY PRN Rx Instructions: administer 2 sprays into each nostril nitroglycerin 0.4 mg tablet, sublingual 0.4 mg sublingual Q5M PRN (Reason: chest pain) Qty: 20 0RF Rx Instructions: do not exceed 3 doses per episode Referrals Follow up/Referrals: Sana Cummings PA [Primary Care Provider] - See instructions Activity Restrictions/Add. Instructions Additional Instructions/Restrictions: No emergent medical condition identified today that is the cause of your right upper quadrant pain. As discussed I recommend that you continue to follow-up with Dr. Blevins and return the emergency department with worsening chest pain shortness of breath blood in your vomit black stool blood in your stool or other concerns. Clinical Impressions Clinical Impression: Abdominal pain, RUQ Instructions Patient Instructions: DI for Acute Abdominal Pain Discharge ED Provider: Muna Kolb Adult [facility] General Chief complaint: Abdominal Pain Stated complaint: abd pain right back pain Time Seen by Provider: 07/03/23 13:47 Mode of Arrival: Ambulatory Source of Information: Patient Limitations: No Limitations Description of Symptoms (Recalled from ER Triage Doc. by RN): pt has been having ruq pain since this , has seen pcp and she has an ultrasound scheduled on wednesday, but pain has gotten worse and she came in for ct scan instead. she says she feels weak and tired and just not her usual self Related Data Home Medications Medication Instructions Recorded Confirmed multivitamin,wz-ubzq-fzfnycvx 1 tab PO DAILY Supplement 07/02/17 07/02/23 (Complete Multivitamin tablet) sdogjoi-pzokescdq-txvzhl-etvvp-bqrgmsed-ujyvr-invertase 2 cap PO DAILY 08/27/22 07/02/23 220 mg capsule magnesium citrate 125 mg capsule 150 mg PO DAILY 08/27/22 07/02/23 omega 8-snc-zel-fish oil 100 1 cap PO BID 08/27/22 07/02/23 mg-160 mg-1,000 mg capsule (Fish Oil) pyridoxine (vitamin B6) 50 mg 50 mg PO DAILY 08/27/22 07/02/23 tablet bromelains 500 mg tablet 1,000 mg PO DAILY 09/18/22 07/02/23 fluticasone propionate 50 2 spray intranasal DAILY PRN 09/30/22 07/02/23 mcg/actuation nasal spray,suspension (Flonase Allergy Relief) levocarnitine 500 mg tablet 1,000 mg PO DAILY 09/30/22 07/02/23 (L-Carnitine) olive leaf extract 250 mg capsule 250 mg PO DAILY 09/30/22 07/02/23 vit A 2,000 unit-vit D3 2,000 1 cap PO .qd 09/30/22 07/02/23 unit-vit E 150 unit-K1 1,000 mcg capsule Previous Rx's Medication Instructions Recorded nitroglycerin 0.4 mg sublingual 0.4 mg sublingual Q5M PRN chest 09/30/22 tablet pain #20 tabs Allergies Allergy/AdvReac Type Severity Reaction Status Date / Time codeine [CODEINE] Allergy Unknown NA-NAUSEA/V Verified 07/03/23 13:41 OMITING PFSH [facility] Disclaimer: The information contained in this section may have been updated after the patient was seen, as this information can be updated by other users. 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 (Reviewed 07/03/23 @ 13:49 by Cali Castanon ([facility]), ENGINEERING TEAM SUPERVISOR) Kidney stones Menopause Multiple chemical sensitivity syndrome SBO (small bowel obstruction) Surgical History (Reviewed 07/03/23 @ 13:49 by Cali Castanon ([facility]), ENGINEERING TEAM SUPERVISOR) H/O colonoscopy H/O esophagogastroduodenoscopy H/O lithotripsy Hx of cholecystectomy Family History (Reviewed 07/03/23 @ 13:49 by Cali Castanon ([facility]), ENGINEERING TEAM SUPERVISOR) Diabetes Mother CHF (congestive heart failure) Mother Heart attack Father Cancer Mother Hypertension Father Mother Stroke Father Social History (Reviewed 07/03/23 @ 13:49 by Cali Castanon ([facility]), ENGINEERING TEAM SUPERVISOR) Smoking Status: Never smoker alcohol intake: current substance use type: denies use current occupational status: retired Travel in the last 8 weeks: Inside the [place] household members: spouse housing: house marital status: number of children: 3 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 [facility] current occupational exposures/hazards: No caffeine: Yes ROS Obtained: Yes All systems reviewed & no additional complaints except as documented Physical Exam General General appearance: alert and in no apparent distress Respiratory Respiratory exam: Present normal lung sounds bilaterally Cardiovascular Cardiovascular exam: Present regular rate Neurological Exam Neurological exam: Present alert and oriented X3 Medical Decision Making Himanshu Inquiry Pt receiving controlled substance: No Vital Signs: 07/03/23 13:20 07/03/23 14:00 Temperature 98.0 F 97.9 F Temperature Source Oral Oral Pulse Rate [Right Radial] 65 75 Respiratory Rate 18 20 Blood Pressure [Right Arm] 123/66 128/70 Blood Pressure Mean [Right Arm] 85 89 Blood Pressure Source [Right Arm] Automatic Cuff Blood Pressure Position [Right Arm] Sitting 02 Sat by Pulse Oximetry 97 99 Oxygen Delivery Method Room Air Room Air Lab Data Lab results reviewed: Yes I reviewed the patient's lab results. Lab Results 07/03/23 13:40: Urine Color Yellow, Urine Appearance Clear, Urine pH 7.5, Ur Specific Currie 1.015, Urine Protein Trace, Urine Glucose (UA) Negative, Urine Ketones Negative, Urine Blood Negative, Urine Nitrate Negative, Urine Bilirubin Negative, Urine Urobilinogen 0.2, Ur Leukocyte Esterase Negative 07/03/23 14:05: WBC 4.8, RBC 4.78, Hgb 15.3, Hct 45.3, MCV 94.8, MCH 32.0 H, MCHC 33.8, RDW 12.6, Plt Count 203, MPV 8.0, Neut % (Auto) 54.2, Lymph % (Auto) 36.8, [place] % (Auto) 6.1, Eos % (Auto) 2.0, Baso % (Auto) 0.9, Neut # (Auto) 2.6, Lymph # (Auto) 1.8, [place] # (Auto) 0.3, Eos # (Auto) 0.1, Baso # (Auto) 0.1, Sodium 142, Potassium 4.0, Chloride 103, Carbon Dioxide 32 H, Anion Gap 11.0, BUN 11, Creatinine 0.70, Estimated Creat Clear 59, Estimated GFR 84, Est GFR ( Amer) 102, Glucose 112 H, Lactate 1.0, Calcium 9.7, Total Bilirubin 1.0, AST 37 H, ALT 32, Alkaline Phosphatase 66, Troponin I < 0.01, Total Protein 8.0, Albumin 4.5, Globulin 3.5 H, Albumin/Globulin Ratio 1.3, Lipase 60 07/03/23 14:05 07/03/23 14:05 Orders (Tests/Meds): ED MEDICATIONS Generic Name Dose Route Start Last Admin Trade Name Freq PRN Reason Stop Dose Admin Sodium Chloride 10 ml 07/03/23 14:01 Sodium Chloride 0.9% 10ml Flush Syringe IV 08/02/23 14:00 NEEDED PRN Maintain IV Site Discontinued Medications Generic Name Dose Route Start Last Admin Trade Name Freq PRN Reason Stop Dose Admin Iopamidol 75 ml 07/03/23 14:48 07/03/23 14:48 Iopamidol-370 (76%);100ml Bottle IV 07/03/23 14:49 75 ml ONCE ONE Administration Sodium Chloride 10 ml 07/03/23 14:48 07/03/23 14:48 Sodium Chloride 0.9% 10ml Syr (Rad Only) IV 07/03/23 14:49 10 ml ONCE ONE Administration ORDERS Category Date Time Status CT abdomen pelvis w con Stat Cat Scan 07/03/23 14:00 Completed CXR --portable [XR chest portable] Stat Exams 07/03/23 14:38 Completed POCUS Point of Care (ER Only) Stat Exams 07/03/23 14:26 Completed Complete Blood Count Auto Diff Stat Lab 07/03/23 14:05 Completed Comprehensive Metabolic Panel Stat Lab 07/03/23 14:05 Completed Lactic Acid Stat Lab 07/03/23 14:05 Completed Lipase Stat Lab 07/03/23 14:05 Completed Trop I [Troponin I] Stat Lab 07/03/23 14:05 Completed Troponin I Q3H Lab 07/03/23 17:45 Ordered Troponin I Q3H Lab 07/03/23 20:45 Ordered Urinalysis and Microscopic Stat Lab 07/03/23 14:00 Ordered Urine Culture Stat Micro 07/03/23 13:31 Received ECG Request Stat Y 07/03/23 14:38 Ordered Medical Decision Narrative: This is Dr. Azul I took over from Dr. Kolb after initial workup was completed. Person interpreted patient CT scan and chest x-ray which showed no acute abnormality which would be causing the right upper quadrant pain. She is not tachycardic she is not short of breath has no chest pain associate with this this is not consistent with a PE or ACS. She does states she has had some chills at home but no fever there is no evidence of any pneumonia on the CT scan or chest x-ray. LFTs and lipase are unremarkable from an emergency standpoint. Serial exams are benign she is very well-appearing breathing comfortably on my reassessment. Urinalysis unremarkable this is not consistent with pyelonephritis as well. She has an established relationship with Dr. Blevins in [place] and her primary care doctor was trying to get her into see this doctor already before her visit today. Possible this is on the spectrum of peptic ulcer disease however she has no definitive symptoms that are associated with eating. Overall no definitive evidence of an emergent medical condition causing her symptoms she has been advised to follow-up with her primary care doctor and/or gastroenteritis and return to the emergency department with any worsening symptoms. Critical Care Critical Care Time Critical Care Time: No
[2023-07-03 16:46] VITALS: BP 107/56; PULSE 70; RESP 20; TEMP 36.6; O2SAT 98
[2023-07-03 16:50] VITALS: BP 105/76; PULSE 77; RESP 18; TEMP 36.6; O2SAT 99
== END 2023-07-03 16:50 | disposition home or self-care (01) ==
LOC: UTC 13:07 → ER 13:52
PROVIDERS: Nurse Practitioner Family; Emergency Provider Emergency Medicine; PCP Student in an Organized Health Care Education/Training Program
DX: R10.11 Right upper quadrant pain (principal); R00.1 Bradycardia, unspecified; R11.0 Nausea
CPT/HCPCS: 71045; 74177; 80053; 81003; 83605; 83690; 84484; 85025; 87086; 93005; 99285; Q9967

== ENCOUNTER 2023-07-08 10:32 | Outpatient (CLI) | payer OTHER, SELFPAY ==
--- NOTE | 2023-07-08 10:46 | US_ITS ---
FINAL REPORT TECHNIQUE: Ultrasound images of the abdomen were obtained. CLINICAL HISTORY: ABD PAIN FINDINGS: The liver is unremarkable. The patient is status post cholecystectomy. The common duct is minimally dilated, probably due to previous cholecystectomy. The right kidney measures 9.8 cm in length and is normal in echogenicity without hydronephrosis. The left kidney measures 10.1 cm in length and is normal in echogenicity without hydronephrosis. The spleen is unremarkable. The aorta is normal in caliber. The vena cava is unremarkable. IMPRESSION: Minimally dilated common bile duct, probably due to previous cholecystectomy. Reviewed, Interpreted and Dictated by Ankit Cardona MD Transcribed by Loan Boateng Authenticated and [facility]
== END 2023-07-08 23:59 ==
LOC: RAD 10:34
PROVIDERS: PCP Student in an Organized Health Care Education/Training Program; Visit Provider Student in an Organized Health Care Education/Training Program
DX: R10.11 Right upper quadrant pain (principal)
CPT/HCPCS: 76700

== ENCOUNTER 2023-09-17 12:57 | Outpatient (CLI) | payer OTHER, SELFPAY ==
--- NOTE | 2023-09-17 12:58 | US_ITS ---
FINAL REPORT TECHNIQUE: Limited sonographic images of the thyroid were obtained. CLINICAL HISTORY: thyroid mass FINDINGS: The right lobe of the thyroid measures 4.2 x 1.2 x 1.8 cm. There is an 18 x 14 x 12 mm cystic nodule consistent with TI-RADS category 1. The left lobe of the thyroid measures 4.0 x 1.1 x 1.4 cm. No mass or nodule is identified. The isthmus measures 3 mm. IMPRESSION: Right thyroid lobe nodule consistent with TI-RADS category 1. No recommendations as per TI-RADS criteria. Reviewed, Interpreted and Dictated by Smooth Lam III, MD Transcribed by Loan Boateng Authenticated and [facility]
== END 2023-09-17 23:59 | disposition home or self-care (01) ==
LOC: RAD 12:58
PROVIDERS: PCP Internal Medicine; Visit Provider Internal Medicine
DX: E07.9 Disorder of thyroid, unspecified (principal)
CPT/HCPCS: 76536

== ENCOUNTER 2024-08-07 08:35 | Outpatient (CLI) | payer MEDICARE, OTHER, SELFPAY ==
--- NOTE | 2024-08-07 08:59 | XR_ITS ---
FINAL REPORT TECHNIQUE: Bone mineral density was calculated of the lumbar spine and hip. CLINICAL HISTORY: Recommended bone density screening FINDINGS: Using L1-4, the bone mineral density of the spine is 0.888 g/cm2, corresponding to T-score of -1.4. Using the left hip, the bone mineral density of the femoral neck is 0.817 g/cm2, corresponding to a T-score of -1.0. Using the right hip, the bone mineral density of the femoral neck is 0.817 g/cm?, corresponding to a T-score of -1.0. NOTE: T-score: Standard deviation compared with peak bone mass of young adult mean. *Following the recommendations of the International Society of Bone densitometry, classification of hip BMD is based on the lower of two T-scores; total hip or femoral neck. IMPRESSION: Diminished bone mineral density of the lumbar spine and left hip consistent with osteopenia. Reviewed, Interpreted and Dictated by Ankit Cardona MD Transcribed by Montserrat Thomason Authenticated and [facility]
[2024-08-07 09:06] LABS: Basophils % 0.5 % (0.1-2.0); Eosinophils # 0.1 K/mm3 (0.0-0.4); Hematocrit 41.7 % (37.0-47.0); Hemoglobin 13.9 g/dL (12.2-16.2); Lymphocytes # 1.6 K/mm3 (0.7-4.5); Lymphocytes % 41.4 % (10-50); Mean Corpuscular HGB Conc 33.3 g/dL (31.8-35.4); Mean Corpuscular Hemoglobin 31.1 pg (27.0-31.2); Mean Corpuscular Volume 93.3 fl (81-99); Mean Platelet Volume 9.9 fl (7.4-10.4); Monocytes # 0.3 K/mm3 (0.1-1.0); Monocytes % 8.3 % (1.7-9.3); Neutrophils # 1.9 K/mm3 (1.8-7.8); Neutrophils % 47.5 % (37.0-80.0); Platelet Count 219 K/mm3 (142-424); Red Blood Count 4.47 M/mm3 (4.20-5.40); Red Cell Distribution Width 11.8 % (11.5-17.5)
[2024-08-07 09:37] LABS: Alanine Aminotransferase 25 U/L (12-78); Albumin Level 4.6 g/dl (3.5-5.0); Albumin/Globulin Ratio 1.8 (1.1-1.8); Alkaline Phosphatase 60 U/L (38-126); Anion Gap 8.9 mEq/L (5-15); Aspartate Amino Transferase 27 U/L (14-36); Blood Urea Nitrogen 16 mg/dl (7-17); Calcium 9.4 mg/dl (8.4-10.2); Carbon Dioxide 32 mmol/L (22.0-30.0); Chloride 103 mmol/L (98-107); Chol/HDL Ratio 3.5 (1-3.5); Cholesterol 221 mg/dl (140-200); Estimated Glomerular Filt Rate 84 ml/min (>60); GFR (African American) 102 ML/MIN (>60); Globulin 2.5 g/dL (1.3-3.2); Glucose 103 mg/dl (74-100); HDL Cholesterol 63 mg/dl (40-60); Potassium 3.9 mmoL/L (3.5-5.1); Sodium 140 mmol/L (136-145); Total Protein,Serum 7.1 g/dl (6.3-8.2); Triglycerides 85 mg/dl (30-150); VLDL Cholesterol 17 mg/dL (0-40)
[2024-08-07 09:48] LABS: Direct LDL Cholesterol 119.73 mg/dL (100-129)
[2024-08-07 10:09] LABS: Hemoglobin A1C 5.4 % (4.0-6.0)
[2024-08-08 08:15] LABS: Homocyst(e)ine 8.7 umol/L (0.0-17.2)
== END 2024-08-07 23:59 | disposition home or self-care (01) ==
LOC: RAD 08:37
PROVIDERS: PCP Internal Medicine; Visit Provider Internal Medicine
DX: M81.0 Age-related osteoporosis without current pathological fracture (principal); E78.00 Pure hypercholesterolemia, unspecified; Z79.899 Other long term (current) drug therapy; Z13.220 Encounter for screening for lipoid disorders; Z91.89 Other specified personal risk factors, not elsewhere classified; Z13.1 Encounter for screening for diabetes mellitus
CPT/HCPCS: 36415; 77080; 80053; 80061; 83036; 83090; 85025

== ENCOUNTER 2024-12-01 09:32 | Outpatient (CLI) | payer MEDICARE, OTHER, SELFPAY ==
--- OUTSIDE RECORDS SUMMARY | 2023-12-01 05:30 | XMS_ITS | Continuity of Care Document ---
Author Organization [facility] Address [address] [place] [address] Phone Care Team Providers Care Digital Forensic Analyst Name Role Phone Garo OD, Kamilla Unavailable Unavailable Allergies, Adverse Reactions, Alerts Substance Reaction Status Criticality codeine Active No Information Medications Medication Instructions Dosage Effective Dates (start - stop) Status Comments colestipol 1 gram tablet - A ctive Procedures Procedure Date REFRACTION Dynamic [facility] Ext Eye Photo OFFICE/OUTPATIENT VISIT, EST OFFICE/OUTPATIENT VISIT, EST OFFICE/OUTPATIENT VISIT, EST REFRACTION OFFICE/OUTPATIENT VISIT, EST OFFICE/OUTPATIENT VISIT, EST REFRACTION OFFICE/OUTPATIENT VISIT, EST REFRACTION COMPREHENSIVE EYE EXAM, NEW PATIENT Advance Directives Directive Yes / No Effective Date File Name No Information Encounters Encounter Description Practice Location Reason(s) For Visit Diagnoses Date Provider Providers Copied on Encounter OFFICE/OUTPA TIENT VISIT, EST [facility], [address] [place], [place] [address], [place], [address], [place] tel:[phone] [facility] [place] dry eyes (chief complaint)c ataracts (chief complaint) Dry eye syndrome of bilateral lacrimal glandsMGD (meibomian gland dysfunction)Pap illoma of right eyelidAnterior basement membrane dystrophy (ABMD) of both eyesAge-related nuclear cataract, bilateralPresby opia 4 Garo OD Kamilla. [address] [place], [id number] , [place]. tel:[phone] Referring Provider: Kamilla Wyman OD L, [address] [place], [address] . tel:[phone] OFFICE/OUTPA TIENT VISIT, EST [facility], [address] [place] [address], [facility] [place], [facility], tel:[phone] [facility] [place] DRY EYES (chief complaint) Dry eye syndrome of bilateral lacrimal glands 3 Garo OD Kamilla. [address] [place], [id number] , [place]. tel:[phone] Referring Provider: Kamilla Garo OD L, [address] [place], [address] . tel:[phone] OFFICE/OUTPA TIENT VISIT, [facility], [address] [place] [address], [facility] [place], [facility], tel:[phone] [facility] [place] dry eyes (chief complaint) Dry eye syndrome of bilateral lacrimal glandsAnterior basement membrane dystrophy (ABMD) of both eyesPapilloma of right eyelidMGD (meibomian gland dysfunction) 3 [place] OD Kamilla. [address] [place], [id number] , [place]. tel:[phone] Referring Provider: Kamilla Wyman OD L, [address] [place], [address] . tel:[phone] OFFICE/OUTPA TIENT VISIT, [facility], [address] [place] [address], [place], [place], [facility], [place] tel:[phone] [facility] [place] presbyopia (chief complaint)d ry eyes (chief complaint) Dry eye syndrome of bilateral lacrimal glandsPresbyopi aAge-related nuclear cataract, bilateral 3 Garo OD Kamilla. [address] [place], [place], [place], [id number] , [place]. tel:[phone] Referring Provider: Kamilla Wyman OD L, [address] [place], [place], [address] . tel:[phone] OFFICE/OUTPA TIENT VISIT, EST [facility], [address] [place] [address] [address], [place], [facility], [place] tel:[phone] [facility] [place] dry eyes (chief complaint) Dry eye syndrome of bilateral lacrimal glands 1 Garo OD Kamilla. [address] [place] [employer] [place], [place], [place], [id number] , [place]. tel:[phone] Referring Provider: Kamilla Wyman OD L, [address] [place], [place], [address] . tel:[phone] OFFICE/OUTPA TIENT VISIT, EST [facility], [address] [place] [address], [place], [facility], [place] tel:[phone] [facility] [place] blurry vision (chief complaint) PresbyopiaDry eye syndrome of bilateral lacrimal glands 1 [place] OD Kamilla. [address] [place], [id number] , [place]. tel:[phone] Referring Provider: Kamilla Wyman OD L, [address] [place], [place], [address] . tel:[phone] [facility], [facility] [address] [place] [address] [address], [place], [address], [place] tel:[phone] [facility] [place] No Information 1 Garo OD Kamilla. [address] [place], [id number] , [place]. tel:[phone] [facility], [facility] [address] [place] [address] [address], [place], [address], [place] tel:[phone] [facility] [place] blurry vision (chief complaint) Presbyopia 9 Garo OD Kamilla. [address] [place], [place], [id number] , [place]. tel:[phone] Referring Provider: Kamilla Wyman OD [place], [address] [place], [address] . tel:[phone] Family History Family Member Type Diagnosis Age At Onset Mother Problem (finding) Diabetes mellitus Father Problem (finding) Diabetes mellitus Payers Payer name Insurance type Covered alliance party ID Authorjavier morgan(s) [facility] [id number] Social History Type Description Quantity Date Captured Comments Alcohol Use Details Unknown Caffeine Use Details Unknown Tobacco Use Status Current non-smoker Smoking Status Never smoker Non-Smoking Tobacco Use Details : No Details Available : No Details Available Sex Female Chief Complaint And Reason For Visit From encounter dated 12/01/2023 09:30'. dry eyes (chief complaint). Description: The 63 year old patient presents for evaluation of dry eyes in the right eye and left eye. pt states:- Dryness stable, seems better then before - Denies itching, grittiness & excessive tearing - Using warm compresses QHS - Using Systane PF QID OU cataracts (chief complaint). Description: The patient is present for evaluation of cataracts in theright eye and left eye. pt states:- VA's stable w/ glasses - Doesn't have issues w/night driving, only when its raining - Denies halos, glares, flashes, floaters, CONWAY's - No issues w/ bright lights inside or headlights OU Reason For Referral Reason For Referral No Information Plan Of Treatment Date Type Action Status Appointment Yue Samuel / TERE TO RS 0 10/06 BP BOOKED Patient Education Learning About Your Eye s completed Patient Education Dry Eyes: Care Instruct ions completed Patient Education Dry Eyes: Care Instruct ions completed Patient Education Learning About Vision T ests completed Patient Education Learning About Vision T ests completed Patient Education Learning About Your Eye s completed History Of Present Illness Encounter Date Complaint History Of Prese nt Illness cataracts The patient is p resent for evaluation of cataracts in the right eye and left eye. pt states:- VA's stable w/ glasses - Doesn't have issues w/ night driving, only when its raining - Denies halos, glares, flashes, floaters, CONWAY's - No issues w/ bright lights inside or headlights OU dry eyes The 63 year old patient presents for evaluation of dry eyes in the right eye and left eye. pt states:- Dryness stable, seems better then before - Denies itching, grittiness & excessive tearing - Using warm compresses QHS - Using Systane PF QID OU DRY EYES The 62 year old patient presents for evaluation of DRY EYES in the right eye and left eye. It started about 6+ month(s) ago.Pt. notes she is using Systane PF BID OU Pt. reports dry eye symptoms have improved- symptoms described as mild Pt. reports she is less light sensitive since using AT Pt. uses hot compress QD-BID OU Pt. reports stable VAsPt. reports minor discomfort under brow bone- since last covid diagnoses (2022)Pt. denies flashes of light, floaters, eye pain. dry eyes The 62 year old patient presents for evaluation of dry eyes in the right eye and left eye. It started about 1 year(s) ago. Patient states:-used Xiidra, did not like it, voice started changing and could taste the chemicals -Pt. notes she has been using warm compresses in shower, and taking oral fish oil.-OU are feeling better since last visit, feeling more relaxed" w/ use of warm compresses and fish oil.-Reports stable VA with glasses-Denies flashes, floaters. presbyopia The 61 year old patient presents for evaluation of presbyopia in the right eye and left eye. It started about 1 year(s) ago. Pt states - She is starting to struggle with glare.- Pt notes when she is driving at night street lights bother her and if it is really ganga.- Pt denies eye pain, flashes, floaters and headaches. dry eyes The patient is p resent for evaluation of dry eyes in the right eye and left eye. It started about 1 year(s) ago. Pt states - Pt states she is no longer using Restasis due to burning. - Pt notes she is taking Fish Oil daily and it seems to help. dry eyes The 60 year old female presents for evaluation of dry eyes in the right eye and left eye. It occurs all the time. The onset was gradual. It affects both near and far vision. The symptom is constant. The condition is mild. The condition is described as dry. Patient denies: eye pain, flashes and floaters. The patient notes she takes fish oil and feels it helps her eyes. The patient states Restasis was burning OU and felt that both lids were swollen. The patient would prefers not to use the Restasis. blurry vision The 60 year old female presents for evaluation of blurry vision in the right eye and left eye. It occurs all the time. The onset was gradual. It affects both near and far vision. The symptom is constant. The condition is moderate. The condition is described as blurring. Patient denies: eye pain, flashes and floaters. The patient notes she has been experiencing light sensitivity OD, both AM and PM. The patient notes driving at night she takes off glasses because OD feels like its burning after being at work all day. The patient states she has been taking fish oil supplements and thinks they help. The patient denies use of gtts. blurry vision The 58 year old female presents for evaluation of blurry vision in the right eye and left eye. It started about 6 month(s) ago. It occurs daily. The onset was gradual. It affects both near and far vision. The symptom is frequent. Patient denies eye pain, flashes, halos and headaches. Pt states that she has started a new job and she is having a lot of trouble with her glasses states that she is on the computer more now and her glasses seem to be causing her more trouble. 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 Impression/Plan Related to Dry e ye syndrome of bilateral lacrimal glands Impression/Plan Related to Dry e ye syndrome of bilateral lacrimal glands Impression/Plan Related to 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 Related to Presbyopia Impression/Plan Related to Presb yopia Assessments Type Assessment Date assessment Dry eye syndrome of bilateral la crimal glands impression Dry eye syndrome of bilateral lacrimal glands: H04.123.Hx gtts: Restasis, Refresh, Xiidra(Pt. unable to tolerate Xiidra due to taste and felt voice changed) assessment MGD (meibomian gland dysfunction ) impression MGD (meibomian gland dysfunction ): H02.889 assessment Papilloma of right eyelid impression Papilloma of right eyelid: D23.1 0 assessment Anterior basement membrane dystr ophy (ABMD) of both eyes impression Anterior basement me mbrane dystrophy (ABMD) of both eyes: H18.523 assessment Age-related nuclear cataract, bi lateral impression Age-related nuclear cataract, bi lateral: H25.13 assessment Presbyopia impression Presbyopia: H52.4 Patient Care Teams Name Effective Dates (start - stop) Status Members No Information
--- OUTSIDE RECORDS SUMMARY | 2024-07-06 06:14 | XMS_ITS | Continuity of Care Document ---
Author Organization [facility]. If a dditional information is needed, contact Health Information Management at [phone] Address [address] [place] [address] Phone Care Team Providers Care Soa Integration Architect Name Role Phone Unavailable Unavailable Unavailable Unavailable Unavailable Unavailable Unavailable Unavailable Unavailable Procedures Abdomen and Pelvis wo ConResult:[facility] [address] [place] [address] Diagnostic Imaging ReportPatient Name: YOHANA HERNANDEZ Acct: [id number]: 1960 Age: 64 Sex: F MR#: [id number] Date/Time: 07/06/24 1026 Admit Date/Time:Patient Status: REG CLI Ordering Physician: MARGIE MccollumCPatient [facility] Attending Physician: MARGIE MccollumCAccession Number(s): [id number](s): Computed Tomography CT Abdomen And Pelvis wo conCPT Code(s): 27618ADNSKXJP INDICATION: Renal stones. TECHNIQUE: Multiple axial CT images were obtained from lung bases through pubic symphysis without theadministration of IV contrast. Reformatted images in the coronal and sagittal planes were generatedfrom the axial data set to facilitate diagnostic accuracy. Total DLP (Dose-Length Product): 497 mGy*cm. Please note: The reported value represents the totalof one or more individual components during the CT acquisition on this date and at this time, and assuch, the same value may appear in more than one CT report depending on the interpreting/reportingphysicians. COMPARISON: CT from October 21, 2020 FINDINGS: Lower Chest: Atelectatic changes noted at the lingula. Analysis of the abdominopelvic viscera is limited by the absence of intravenous contrast material. Solid Abdominal Organs: Liver contour is smooth. Absent gallbladder. Unremarkable pancreas andspleen. Mild nodularity left adrenal gland without suspicious mass. There are several punctatebilateral renal calculi, at least one on the right and at least 3 on the left. No hydronephrosis. Noureteric calculus. GI Tract/Mesentery/Peritoneum: The large and small bowel appear normal in caliber. No evidence ofinflammatory change. No suspicious peritoneal/mesenteric findings. Normal appendix.. Pelvic Viscera: Presumed fibroid uterus. No adnexal mass. Lymph Nodes/Vasculature: No lymphadenopathy by CT size criteria. The aortoiliac vasculature isnormal in caliber. Free Fluid:No ascites Musculoskeletal and Body Wall:No clearly aggressive bone lesions.Patient Name: YOHANA HERNANDEZ Acct: [id number] Unit: [id number] Page 1ORDER #: [id number] CT/CT Abdomen And Pelvis wo conIMPRESSION:Bilateral nonobstructing renal calculi as discussed.CRITICAL RESULT:No.COMMUNICATION:Per this written report.Drafted by Jesse Madsen MD on 07/06/2024 10:53 AMFinal report signed by Jeses Madsen MD on 07/06/2024 10:59 AM<Electronically signed by Jesse Madsen MD in [place]>07/06/24 1059 Thank you for choosing [facility] Dictated By: JABARI Cortezictated Date/Time: 07/06/24 1059Transcribed By: Jesse Madsen MDTranscribed Date/Time: 07/06/24 1059Technologist: Howie DaoCopirving To: Annika Sloan PA-C; iHlda Olmstead APRN Report ID: [id number] -End of Report-Patient Name: YOHANA HERNANDEZ Acct: [id number] Unit: [id number] Page 2 Date:06-Jul-2024 Status:Completed Encounters Ambulatory Encounter Reason:N20.0 R31.29 Encounter Diagnosis:CALCULUS OF KIDNEY 06-Jul-2024 10:[id number] 10:14 Luther Roblero PA-C (Attending) Dimitris Discharge Disposition:Discharged to home or self care (routine discharge)
--- OUTSIDE RECORDS SUMMARY | 2024-12-01 09:37 | XMS_ITS | Data Portability ---
Author Organization [facility] [address] [place] Address [address] [place] [address] Care Team Providers Care Skidder Operator Name Role Phone LIZZ ZAZUETA Primary Care Provider Assessment Encounter Date Assessment Date Assessment LastModified by Organization Details LastModified Time 07/06/2024 07/06/2024 history of stones, at [facility] at start of symptoms microhematuria without infection, negative culture mild but persistent symptoms will get ct stone protocol to eval and call with results [email or web address] Not available 07/06/2024 09:39:53 Plan of Treatment Reminders Order Date Submit Date Provider Last Modified By Organization Details Last Modified Time Details Appointments None recorded. Lab urinalysis panel, auto 2024 025 [email or web address] [facility] [address] [place], [place], [address], 5 09:37:51 urinalysis panel, auto 2020 021 [email or web address] [facility] [address] [place], [place], [address], 21:26:52 urinalysis, dipstick 2016 017 [email or web address] [facility] [address] [place], [place], [address], 17:59:57 Referral None recorded. Procedures None recorded. Surgeries None recorded. Imaging None recorded. Medication Orders dicyclomine 20 mg tablet 2023 024 [email or web address] [id number], [address] [address] [place], [id number], 09:22:03 Patient TargetsNo targets recorded. Patient Instructions Encounter Date Encounter Id Patient Instructions Last Modified By Organization Details Last Modified Time 09/05/2020 [id number] We'll obtain a C T abdomen and pelvis stone protocol and call her with results [email or web address] Not available 09/05/2020 21:26:51 07/06/2024 [id number] eating healthy foods: care instructions [email or web address] Not available 07/06/2024 09:37:51 See notes above and in HPI will call with results and plan return sooner if needed Pt understands and agrees with care plan. No further questions or concerns at this time [email or web address] Not available 07/06/2024 09:40:04 Reason for Referral None Reported. Results Created Date Observation Date Name Description Value Unit Range Abnormal Flag Note LastModifiedBy Organization Detail LastModifiedTime 09/06/1909/05/2020 urina lysis panel , auto Unknown Analyte Clean Catch Not Available [address] [place], [place], [address], 09/05/2020 08:44:20 09/06/19 21 09/05/2020 urina lysis panel , auto Unknown Analyte Yellow Not Available [address] [place], [place], [address], 09/05/2020 08:44:20 09/06/19 21 09/05/2020 urina lysis panel , auto Unknown Analyte Clear Not Available [address] [place], [place], [address], 09/05/2020 08:44:20 09/06/19 21 09/05/2020 urina lysis panel , auto Unknown Analyte 1.020 Not Available [address] [place], [place], [address], 09/05/2020 08:44:20 09/06/19 21 09/05/2020 urina lysis panel , auto Unknown Analyte 6.5 Not Available [address] [place], [place], [address], 09/05/2020 08:44:20 09/06/19 21 09/05/2020 urina lysis panel , auto Unknown Analyte Negati ve Not Available [address] [place], [address], 09/05/2020 08:44:20 09/06/19 21 09/05/2020 urina lysis panel , auto Unknown Analyte Negati ve Not Available [address] [place], [address], 09/05/2020 08:44:20 09/06/19 21 09/05/2020 urina lysis panel , auto Unknown Analyte Negati ve Not Available [address] [place], [place], [address], 09/05/2020 08:44:20 09/06/19 21 09/05/2020 urina lysis panel , auto Unknown Analyte Normal Not Available [address] [place], [place], [address], 09/05/2020 08:44:20 09/06/19 21 09/05/2020 urina lysis panel , auto Unknown Analyte Negati ve Not Available [address] [place], [place], [address], 09/05/2020 08:44:20 09/06/19 21 09/05/2020 urina lysis panel , auto Unknown Analyte Normal Not Available [address] [place], [address], 09/05/2020 08:44:20 09/06/19 21 09/05/2020 urina lysis panel , auto Unknown Analyte Negati ve Not Available [address] [place], [place], [address], 09/05/2020 08:44:20 09/06/19 21 09/05/2020 urina lysis panel , auto Unknown Analyte Negati ve Not Available [address] [place], [place], [address], 09/05/2020 08:44:20 06/30/19 17 06/30/2016 urina lysis , dipst ick Unknown Analyte Yellow Not Available [address] [place], [place], [address], 06/30/2016 11:30:45 06/30/19 17 06/30/2016 urina lysis , dipst ick Unknown Analyte Clear Not Available [address] [place], [address], 06/30/2016 11:30:45 06/30/19 17 06/30/2016 urina lysis , dipst ick Unknown Analyte 1.010 Not Available [address] [place], [place], [address], 06/30/2016 11:30:45 06/30/19 17 06/30/2016 urina lysis , dipst ick Unknown Analyte 6.5 Not Available [address] [place], [address], 06/30/2016 11:30:45 06/30/19 17 06/30/2016 urina lysis , dipst ick Unknown Analyte Negati ve Not Available [address] [place], [address], 06/30/2016 11:30:45 06/30/19 17 06/30/2016 urina lysis , dipst ick Unknown Analyte Negati ve Not Available [address] [place], [place], [address], 06/30/2016 11:30:45 06/30/19 17 06/30/2016 urina lysis , dipst ick Unknown Analyte Negati ve Not Available [address] [place], [place], [address], 06/30/2016 11:30:45 06/30/19 17 06/30/2016 urina lysis , dipst ick Unknown Analyte Normal Not Available [address] [place], [place], [address], 06/30/2016 11:30:45 06/30/19 17 06/30/2016 urina lysis , dipst ick Unknown Analyte Negati ve Not Available [address] [place], [place], [address], 06/30/2016 11:30:45 06/30/19 17 06/30/2016 urina lysis , dipst ick Unknown Analyte Normal Not Available [address] [place], [place], [address], 06/30/2016 11:30:45 06/30/19 17 06/30/2016 urina lysis , dipst ick Unknown Analyte Negati ve Not Available [address] [place], [place], [address], 06/30/2016 11:30:45 06/30/19 17 06/30/2016 urina lysis , dipst ick Unknown Analyte Negati ve Not Available [address] [place], [place], [address], 06/30/2016 11:30:45 06/30/19 17 06/30/2016 urina lysis , dipst ick Unknown Analyte Automa ramon Not Available [address] [place], [address], 06/30/2016 11:30:45 06/30/19 17 06/30/2016 urina lysis , dipst ick Unknown Analyte Clean Catch Not Available [address] [place], [address], 06/30/2016 11:30:45 07/06/19 25 07/06/2024 urina lysis panel , auto Unknown Analyte Clean Catch Not Available [address] [place], [address], 07/06/2024 09:24:14 07/06/19 25 07/06/2024 urina lysis panel , auto Unknown Analyte Yellow Not Available [address] [place], [address], 07/06/2024 09:24:14 07/06/19 25 07/06/2024 urina lysis panel , auto Unknown Analyte Clear Not Available [address] [place], [place], [address], 07/06/2024 09:24:14 07/06/19 25 07/06/2024 urina lysis panel , auto Unknown Analyte 1.010 Not Available [address] [place], [address], 07/06/2024 09:24:14 07/06/19 25 07/06/2024 urina lysis panel , auto Unknown Analyte 7.0 Not Available [address] [place], [address], 07/06/2024 09:24:14 07/06/19 25 07/06/2024 urina lysis panel , auto Unknown Analyte Negati ve Not Available [address] [place], [place], [address], 07/06/2024 09:24:14 07/06/19 25 07/06/2024 urina lysis panel , auto Unknown Analyte Negati ve Not Available [address] [place], [place], [address], 07/06/2024 09:24:14 07/06/1907/06/2024 urina lysis panel , auto Unknown Analyte Negati ve Not Available [address] [place], [place], [address], 07/06/2024 09:24:14 07/06/1907/06/2024 urina lysis panel , auto Unknown Analyte Normal Not Available [address] [place], [address], 07/06/2024 09:24:14 07/06/1907/06/2024 urina lysis panel , auto Unknown Analyte Negati ve Not Available [address] [place], [place], [address], 07/06/2024 09:24:14 07/06/1907/06/2024 urina lysis panel , auto Unknown Analyte Normal Not Available [address] [place], [place], [address], 07/06/2024 09:24:14 07/06/1907/06/2024 urina lysis panel , auto Unknown Analyte Negati ve Not Available [address] [place], [address], 07/06/2024 09:24:14 07/06/1907/06/2024 urina lysis panel , auto Unknown Analyte Negati ve Not Available [address] [place], [address], 07/06/2024 09:24:14 06/26/19 17 06/26/2016 XR, kidne y + urete r + bladd er No observ ation record ed. [email or web address] [facility] - Radiology [address] [facility], [place], [address], 2016 12:37:03 07/17/19 17 07/15/2016 CT, abdom en + pelvi s, w/o contr ast No observ ation record ed. [email or web address] [facility] - Radiology [address] [facility], [place], [address], 07/20/2016 11:55:01 09/06/19 21 09/05/2020 CT, abdom en + pelvi s, w/o contr ast No observ ation record ed. [email or web address] Not Available 2020 08:32:36 10/22/19 21 10/21/2020 CT, abdom en + pelvi s, w/o contr ast No observ ation record ed. [email or web address] Not Available 18:37:39 07/09/19 24 07/08/2023 US, abdom en, compl ete No observ ation record ed. [email or web address] [facility] [address], [place], [address], 07/09/2023 16:31:43 07/07/19 25 07/06/2024 CT, abdom en + pelvi s, w/o contr ast No observ ation record ed. [email or web address] Not Available 2024 15:34:06 Result Notes None recorded. Problems Name Problem SNOMED Code Status Onset Date Resolution Date Notes Provider Name and Address Organization Details Recorded Time Kidney stone 23568543 Active 2015 From Automated Load;Provi kaiden: Ann Deutsch;Statu s: Active Not Available [facility] 6 03:52:26 Nocturia 676639817 Active 2015 From Automated Load;Provi kaiden: Ann Deutsch;Statu s: Active Not Available [facility] 6 03:52:26 Right lower quadrant pain 882736804 Active 2015 From Automated Load;Provi kaiden: Ann Deutsch;Statu s: Active Not Available [facility] 6 03:52:26 Problem Notes None recorded. Procedures Surgical History Date Name Laterality Status Provider Name and Address Organization Details Recorded Time 06/07/18 95 Cystourethroscopy completed [facility] 2016 07:01:28 06/07/18 80 Other completed [facility] 2016 07:01:51 Cholecystectomy completed [facility] 07/06/2024 09:24:55 Imaging Results None recorded. Procedure Notes None recorded. Medical Equipment None Reported. Allergies Allergen ID Allergen Name Allergen Category Reaction Reaction Severity Criticality Documentation Date Start Date Code Code System Note Provider Name and Address Organization Details Recorded Time 571749 codeine medicatio n Not available Not available Not available 05/01/20162012 2670 RxNorm Comme nt: Creat ed By: Louis Ugalde ed Date: 2012 4:25: 02 PM; Not Available [facility] 6 10:41:12 Medications Name Sig Start Date Stop Date Status Note LastModified by Organization Details LastModified Time Multiple Vitamin capsule Daily active Duration : 30 days;Andrzej quency: daily;Me dication Descript ion: multivit lucero; Dosage:1 ; Route:or al; refills: 3; Quantity :100 capsule Not Available Not Available Not Available omeprazol e 40 mg capsule,d elayed release TAKE 1 CAPSULE BY MOUTH EVERY DAY IN THE MORNING active Not Available Not Available No t Available tamsulosi n 0.4 mg capsule Take 1 capsule every day by oral route at bedtime for 7 days. 07/06 completed Not Available Not Available Not Available dicyclomi ne 20 mg tablet TAKE 1 TABLET BY MOUTH FOUR TIMES DAILY NEEDED active Not Available Not Available No t Available magnesium citrate active Not Available Not Available Not Available progester one 07/06 completed Not Available Not Available Not Available Fish Oil active Not Available Not Avai lable Not Available Vitex-C-1 2 07/06 completed Not Available Not Available Not Available Glucosami ne-Chondr otin 09/05 completed Medicati on Descript ion: miscella neous; refills: 0 Not Available Not Available Not Available Vitals Date Recorded Body height Body weight Body mass index (BMI) Heart rate Systolic blood pressure Diastolic blood pressure Provider Name and Address Organization Details Last Updated DateTime 7 165.1 cm 30981.7 8 g 26.6 kg/m2 78 /min 121 mm[Hg] 80 mm[Hg] [facility] 7 11:50:54 Date Recorded Body height Body mass index (BMI) Body weight Heart rate Systolic blood pressure Diastolic blood pressure Provider Name and Address Organization Details Last Updated DateTime 5 165.1 cm 23.3 kg/m2 95074.9 3 g 64 /min 133 mm[Hg] 73 mm[Hg] [facility] 5 09:21:44 Date Recorded Body weight Heart rate Respiratory rate Systolic blood pressure Diastolic blood pressure Provider Name and Address Organization Details Last Updated DateTime 07/08/2023 00124.9 3 g 74 /min 16 /min 136 mm[Hg] 74 mm[Hg] [facility] 4 08:30:56 Date Recorded Body weight Heart rate Systolic blood pressure Diastolic blood pressure Provider Name and Address Organization Details Last Updated DateTime 09/05/2020 15414.41 g 69 /min 108 mm[Hg] 67 mm[Hg] Kayla Gonsalez [facility] 09/05/2020 08:46:06 Social History Question Answer Notes LastModified by Organizat ion Details LastModified Time Tobacco Smoking Status Never Smoker [place] [facility] [place]05[place]2020 08:27:20 Marital Status Informatio n not available 2016 What Was The Date Of Your Most Recent Tobacco Screening? 07/06/2024 [email or web address] Information not available 07/06/2024 Sex: Unknown Functional Status Question Answer Note LastModified by Organizat ion Details LastModified Time What is your level of alcohol consumption? 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 Family History Relationship Description Onset Age of this Age Resolved Age Notes LastModified by Organization Details LastModified Time Father Diabetes mellitus [email or web address] Not available 2020 08:26:31 Father Kidney stone Not availa ble 09/05/2020 08:27:01 Paternal Grandmother Family history of malignant neoplasm colon Not available 2016 06:59:54 Mother Family history of malignant neoplasm leukem ia Not available 2016 07:00:19 Mother Diabetes mellitus [email or web address] Not available 2020 08:26:35 Mother Kidney stone Not availa ble 09/05/2020 08:27:01 Unspecified Relation Kidney disease Not available 2016 07:00:27 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 Condition Response Allergies/Hayfever Y Kidney Stones Y Thyroid Disorder Y Gynecological HistoryNo gynecological history recorded. Obstetrics History GPAL:G 0 P 0 0 0 0 Past Encounters Encounter ID Performer Location Encounter Start Date Encounter Closed Date Diagnosis/Indication Diagnosis SNOMED-CT Code Diagnosis ICD10 Code Diagnosis Note [id number] TAMIKO KNOWLES MD UROLOGY [address] [place] , [place] [address] 06/30/2016 11:15:02 07/01/2016 08:35:47 History of urinary stone 155672891 Z87.442 -No stones or calculi seen per recent KUB-Pain not consistent with renal colic- agree more consistent with GERD- Uncertain of benefit of mag citrate in treating renal colic and/or in prevention of kidney stones- Advised patient to increase fluids, continue lemon, and possibly start K Cit instead of mag citrate- may need litholink in future to eval if urinary citrate levels are improved with mag citrate [id number] ANN DEUTSCH MD UROLOGY [address] ,[address] [place] [address] 09/05/2020 08:28:35 09/05/2020 11:06:53 Kidney stone 48111809 N20.0 Patient's had a history of recurring urolithias is Nocturia 811541039 R35.1 Urine was clear today Right lowe r quadrant pain 347557092 R10.31 [id number] BALJEET AKHTAR, LORENA GASTRO [address] [facility], [address] [place] [address] 07/08/2023 07:56:07 07/08/2023 09:35:05 Abdominal pain 73480737 R10.9 US abdomen complete recommende d for evaluation of bile ducts, pancreas, etc. Stomach cramps 10112282 R10.9 Dicyclomin e as needed.Kt nd diet, push fluids.Ret urn to ED for worsening pain, fever/chil ls.Follow up in 4 weeks or sooner if needed. [id number] EDUARDO FAN PA-C UROLOGY [address] [address] 07/06/2024 08:58:04 07/06/2024 16:11:43 Body mass index 20-24 - normal 439156491 Z68.23 Kidney stone 06046164 N2 0.0 Flank pain 419933817 R10 .9 Microscopic hematuria 19 8062464 R31.29 Health Concerns Section Related Observation LastModified by Organization Detai ls LastModified Time None Recorded Concern Status LastModified by Organization Details LastModified Time None Recorded Advance Directives Directive None Recorded Payers Insurance Date Sequence Insurance Name Policy Number Policy Mustafa Covered Member ID Mustafa Member ID Guarantor Name 09/04/2020 1 [place] [id number] Yue L [place] [id number] Yue L [place] 07/08/2023 1 UMR (PPO) [id number] Yue L [place] [id number] Yue L [place] 07/06/2024 1 [place] Yue L [place] [id number] Yue L [place] 07/06/2024 2 [employer] (MEDICARE SUPPLEMENT) Yue L [place] [id number] Yue L [place] 07/06/2024 1 [place] - GUID[employer]ACCESS [employer] - PATHWAY X (HMO) [id number] Yue L [place] [id number] Yue L [place] Notes Date Note Type Note Provider Name and Address Organization Details Recorded Time 06/30/2016 text/html 56 yo F with hx of nephrolithiasis presents with c/o back and abdominal pain. Patient states she has had multiple stones and episodes of renal colic since age 17. She had cysto with ureteroscopy in 1995. She states she takes Mag citrate to help with pain. She had recent episode last Wednesday that was initially thought to be a stone. However, subsequent KUB was negative for stones and PCP felt symptoms were more due to dyspepsia and GERD. Patient states she takes olive oil, lemon juice, mag citrate daily to help prevent stones. She admits she does not drink much water or fluids. TAMIKO KNOWLES MD [address] [place] [address], [address], [facility] 06/30/2016 18:00:37 09/05/2020 text/html 60-year-old whit e female with a history of urolithiasis has been having more pain primarily with the right side and just generally not feeling well. She's not had any burning or discomfort with urination and she has a history of stones and thinks that she may be trying to pass 1. Urinalysis was totally clear today with no red or white cells. Her symptoms are generalized and nonacute. Given her history of urolithiasis I'm going to obtain a CT stone protocol and will call her with results. ANN DEUTSCH MD [address] [place] [address], [address], [facility] 09/05/2020 21:27:07 07/08/2023 text/html Yue Samuel is a 63-year-old female here today for evaluation of abdominal pain.Symptoms of intermittent RUQ pain started 1 week ago on . She describes pain as a cramping sensation that has progressively worsened. She is eating very little, as eating makes pain worse. Pain does wake her at night, she has used oxycodone a few times for relief. Pepcid offered no relief. She saw her PCP on Wednesday and states that an ultrasound was ordered, but not completed. She was unable to get into see her chronic disease epidemiologist Dr. Venkatesh Blevins in [place]. On Wednesday she went into [facility] and was directed to the ED at [facility] for workup. She has a history of kidney stones, but reported this pain was not similar. Labs were fairly unremarkable, lipase 60, LFT WNL. Chest x-ray without acute findings. CT abdomen and pelvis with contrast showed no evidence of acute abnormality. There is mention of a 8 mm cyst seen again in the body of the pancreas, findings unchanged. Bilateral punctuate non-obstructing renal calculi, and bilateral renal cysts . History of cholecystectomy in 2016. She experienced similar pain in 2019 and was treated with medication, possibly Bentyl. She has had a couple of episodes of diarrhea recently. Last colonoscopy in 2019, no finding of polyps, but does have a history of polyps. She reports history of EGD with findings of hiatal hernia and gastritis. Life has been busy recently, her daughter had a stroke on . She has been dealing with long COVID symptoms since July. BALJEET AKHTAR, RESTAURANT SERVICE MANAGER [address] [place], [address], [facility] 07/08/2023 10:28:56 07/06/2024 text/html Ms. Samuel is a 64 y/o F with PMH kidney stones who presents for intermittent bilateral flank painhistory of long covid per patient known renal stones. most recent passed stone 2020, 4 mm. last while traveling started with nausea, generalized weakness, vaginal irritation, slight right flank pain, [facility], was told that she had a UTI, started her on abx,woke up on Wednesday and with feeling of illness - fatigue, chills, generalized weakness - intermittently. called [facility] and told urine culture was negative so she stopped the abx still with intermittent mild bilateral flank pain, R>L. urinary frequency has stoppedalso with some occassional bladder spasmno feververy mild nausea, no vomitingsome very mild SP pain which has now resolved EDUARDO EDITH FAN PA-C [address] [place], [address], [facility] 07/06/2024 09:40:40 OBGyn Episode No OBEpisode recorded.
--- OUTSIDE RECORDS SUMMARY | 2024-12-01 09:38 | XMS_ITS | Clinical Summary ---
Author Organization Healthcare Address [address] [id number] Care Team Providers Care Alberene Stone Setter Name Role Phone Pcp, No Primary Care Provider Unavailabl e Social History Tobacco Use Types Packs/Day Years Used Date Smoking Tobacco: Never Assessed Comments Unknown Sex and Gender Information Value Date Recorded Sex Assigned at Not on file Legal Sex Female 7:59 PM EDT Gender Identity Not on file Sexual Orientation Not on file Plan of Treatment Health Maintenance Due Date Last Done Comments [facility]-Bone Density Scan 1959 [facility]-Depression Screening 1959 [facility]-/Child/Adol SDOH Screenings 1959 [facility]- SDOH Screenings 1977 [facility]-Adult SDOH Screenings 1977 [facility]-DTaP,Tdap,and Td Vaccines (1 - Tdap) 1978 [facility]-Pap Smear 1980 [facility]-Cervical Cancer Screening 1989 [facility]-HPV/Cotest 1989 CT Colonography 2004 Colonoscopy 2004 FIT-DNA 2004 FIT 2004 FOBT 2004 Sigmoidoscopy 2004 [facility]-Colorectal Cancer Screening 2004 [facility]-Pneumococcal Vaccine: 50+ Years (1 of 1 - PCV) 2009 [facility]-Zoster Vaccines (1 of 2) 2009 SFL-XNXMD-53 Vaccine (2023- season) 2024 02/25/2022, 09/22/2021, 04/09/2021, Additional history exists [facility]-Influenza Vaccine (Season Ended) 2025 04/14/2022, 06/05/2021 [facility]-RSV Vaccine: 60+ Years or (1 - 1-dose 75+ series) 2034 [facility]-Hepatitis A Vaccines Aged Out 12/14/2018, 04/07 No longer eligible based on patient's age to complete this topic HPV Vaccines Aged Out No longer eligi ble based on patient's age to complete this topic [facility]-HIB Vaccines Aged Out No longer e ligible based on patient's age to complete this topic [facility]-IPV Vaccines Aged Out No longer e ligible based on patient's age to complete this topic [facility]-Rotavirus Vaccines Aged Out No lo nger eligible based on patient's age to complete this topic [place] [address] Care Teams Alberene Stone Setter Relationship Specialty Start Date End Date Pcp, Jyoti [address] [place] [address] PCP - General Family Medicine 06/07/24
[2024-12-01 10:49] LABS: D-Dimer 0.46 ug/mL (0.0-0.5); Fibrinogen 306 mg/dL (229.9-363.5)
[2024-12-01 11:04] LABS: C-Reactive Protein 0.5 mg/L (0-4)
== END 2024-12-01 23:59 | disposition home or self-care (01) ==
LOC: LAB 09:34
PROVIDERS: PCP Internal Medicine; Visit Provider Family Medicine
DX: D68.59 Other primary thrombophilia (principal); R79.82 Elevated C-reactive protein (CRP)
CPT/HCPCS: 36415; 85378; 85384; 86140

== ENCOUNTER 2025-05-23 08:39 | Outpatient (CLI) | payer MEDICARE, OTHER, SELFPAY ==
--- OUTSIDE RECORDS SUMMARY | 2025-05-23 08:53 | XMS_ITS | Clinical Summary ---
Author Organization Healthcare Address [address] [place] [address] Care Team Providers Care De[employer]hand [employer] Name Role Phone Pcp, No Primary Care [...] [facility]-Bone Density Scan 1959 [facility]-Depression Screening 1959 [facility]-Infant/Child/Adol SDOH Screenings 1959 [facility]- SDOH Screenings 1977 [facility]-Adult SDOH Screenings 1977 [facility]-DTaP,Tdap,and Td Vaccines (1 - Tdap) 1978 [facility]-Pap Smear 1980 [facility]-Cervical Cancer Screening 1989 [facility]-HPV/Cotest 1989 CT Colonography 2004 Colonoscopy 2004 FIT-DNA 2004 FIT 2004 FOBT 2004 Sigmoidoscopy 2004 [facility]-Colorectal Cancer Screening 2004 [facility]-Pneumococcal Vaccine: 50+ Years (1 of 1 - PCV) 2009 [facility]-Zoster Vaccines (1 of 2) 2009 [id number] Vaccine (2024- season) 2025 02/25/2022, 09/22/2021, 04/09/2021, Additional history exists [facility]-Influenza Vaccine (#1) 2025 04/14/2022, [facility]-RSV Vaccine: 60+ Years or (1 - 1-dose 75+ series) 2034 [facility]-Hepatitis A Vaccines Aged Out 12/14/2018, 04/07 No longer eligible based on patient's age to complete this topic HPV Vaccines (No Doses Required) Completed [facility]-HIB Vaccines Aged Out No longer e ligible based on patient's age to complete this topic [facility]-IPV Vaccines Aged Out No longer e ligible based on patient's age to complete this topic [facility]-Rotavirus Vaccines Aged Out No lo nger eligible based on patient's age to complete this topic Insurance [facility] [place] [address] Care Teams [employer] Relationship Specialty Start Date End Date Yarelis, Jyoti [address] [place] [address] PCP - General Family Medicine 06/07/24
[2025-05-23 09:12] LABS: Hematocrit 39.9 % (37.0-47.0); Hemoglobin 13.4 g/dL (12.2-16.2); Immature Granulocytes % 0.2 %; Mean Corpuscular HGB Conc 33.6 g/dL (31.8-35.4); Mean Corpuscular Hemoglobin 31.7 pg (27.0-31.2); Mean Corpuscular Volume 94.3 fl (81-99); Nucleated Red Blood Cells % 0 %; Platelet Count 224 K/mm3 (142-424); Red Blood Count 4.23 M/mm3 (4.20-5.40); Red Cell Distribution Width-SD 43.7 fL; White Blood Count 6.0 K/mm3 (4.8-10.8)
[2025-05-23 09:53] LABS: C-Reactive Protein 0.3 mg/L (0-4)
[2025-05-23 10:03] LABS: Free T4 (Free Thyroxine) 1.29 ng/dl (0.78-2.19)
[2025-05-23 10:05] LABS: T4 (Thyroxine) 9.7 ug/dl (5.53-11.0)
[2025-05-23 10:18] LABS: Thyroid Stimulating Hormone 1.69 uIU/mL (0.465-4.68)
[2025-05-24 06:15] LABS: Cytomegalovirus (CMV) Ab, IgG <0.60 U/mL (0.00-0.59); Cytomegalovirus (CMV) Ab, IgM <30.0 AU/mL (0.0-29.9)
[2025-05-24 08:14] LABS: Triiodothyronine (T3) Free 2.5 pg/mL (2.0-4.4)
[2025-05-24 13:27] LABS: Antinuclear Antibodies (ANA) Negative (Negative)
[2025-05-24 14:51] LABS: EBV Nuclear Antigen Ab, IgG 98.9 U/mL (0.0-17.9)
[2025-05-24 16:13] LABS: Cortisol,AM 13.5 ug/dL (6.2-19.4)
== END 2025-05-23 23:59 | disposition home or self-care (01) ==
LOC: LAB 08:40
PROVIDERS: PCP Internal Medicine; Visit Provider Nurse Practitioner Family
DX: M79.10 Myalgia, unspecified site (principal); U09.9 Post COVID-19 condition, unspecified; R53.83 Other fatigue
CPT/HCPCS: 36415; 82180; 82533; 83735; 84436; 84439; 84443; 84481; 84630; 85025; 86140; 86644; 86645; 86664; 86665; 87476

== ENCOUNTER 2025-06-04 12:40 | Outpatient (CLI) | payer MEDICARE, OTHER, SELFPAY ==
--- OUTSIDE RECORDS SUMMARY | 2025-06-04 12:43 | XMS_ITS | Clinical Summary ---
Author Organization Healthcare Address [address] [place] [address] Care Team Providers Care Light Equipment Operator Name Role Phone Pcp, No Primary Care [...] 2009 [facility]-Zoster Vaccines (1 of 2) 2009 [id number] Vaccine (2024- season) 2025 02/25/2022, 09/22/2021, 04/09/2021, [...] patient's age to complete this topic Insurance [facility] [place] [address] Care Teams Light Equipment Operator Relationship Specialty Start Date End Date Yarelis, Jyoti [address] [place] [address] PCP - General Family Medicine 06/07/24
--- NOTE | 2025-06-04 13:01 | ECG_ITS ---
APPROVED REPORT Exam: Resting ECG HR:69 bpm ECG Measurements Heart Rate 69 AXES AL 160 P 72 QRSd 93 QRS 73 QT 402 T 65 QTc 422 Conclusion SINUS RHYTHM NORMAL ECG UNCONFIRMED REPORT Electronically signed by : Collin Reynoso MD 06/04/2025 17:31:54
== END 2025-06-04 23:59 | disposition home or self-care (01) ==
LOC: RT 12:41
PROVIDERS: PCP Internal Medicine; Visit Provider Nurse Practitioner Family
DX: R07.9 Chest pain, unspecified (principal)
CPT/HCPCS: 93005